=== PATIENT | female | born 1940 | race Caucasian/White ===

== ENCOUNTER 2017-04-25 20:26 | Inpatient (IN) | payer MEDICARE, OTHER ==
[~2017-04-25] VITALS: Ht 144.8 cm; Wt 93.0 kg
[~2017-04-25 20:26] MED LIST: ACETAMINOPHEN-1 EAC1; ALPRAZOLAM 0.50.5 M1; AMITRIPTYLINE; FLEXERIL PO; LISINOPRIL20 MG; NEXIUM40 MG PO; NORCO 5-325 TA1 EACH PO; PRAVACHOL40 MG PO
[2017-04-25 20:30] VITALS: BP 133/44
[2017-04-25] MEDS ORDERED: CYCLOBENZAPRINE5 MG PO (21:17)
[2017-04-25] MEDS ORDERED: XANAX 0.25 MG0.25 MG PO (21:17)
[2017-04-25] MEDS ORDERED: FARXIGA10 MG PO (21:18)
[2017-04-25] MEDS ORDERED: ELIQUIS5 MG PO (21:18)
[2017-04-25] MEDS ORDERED: FLONASE 0.05%50 MCG NASAL (21:18)
[2017-04-25] MEDS ORDERED: SYNTHROID50 MCG PO (21:18)
[2017-04-25] MEDS ORDERED: REMERON 30 MG T30 M1 PO (21:19)
[2017-04-25] MEDS ORDERED: COZAAR 25 MG TA25 M1 PO (21:19)
[2017-04-25] MEDS ORDERED: TOPROL XL50 MG PO (21:19)
[2017-04-25] MEDS ORDERED: DEMADEX20 MG PO (21:20)
[2017-04-25] MEDS ORDERED: POTASSIUM20 PO (21:20)
[2017-04-25] MEDS ORDERED: TRAZODONE HCL50 MG PO (21:21)
[2017-04-25] MEDS ORDERED: TRAMADOL 50 MG50 MG PO (21:21)
[2017-04-25] MEDS ORDERED: EFFEXOR XR150 MG PO (21:21)
[2017-04-25 21:25] LABS: HEMATOCRIT 33.3 % (37.0-47.0); HEMOGLOBIN 10.4 gm/dL (12.0-15.0); MCH 25.7 pg (26.0-34.0); MCHC 31.1 g/dL (28.0-37.0); MCV 82.6 fL (80.0-100.0); MPV 9.9 fl. (7.2-11.1); NUCLEATED RBCS 0 /100WBC; PLATELET COUNT* 204 thou/uL (150-400); RBC 4.03 mil/uL (4.20-5.00); RDW-CV 19.7 % (10.5-14.5); WBC 9.3 thou/uL (4.0-11.0)
[2017-04-25 21:32] LABS: ANION GAP 8 mmol/L (7-16); BUN 11 mg/dL (7-18); CALCIUM 7.6 mg/dL (8.5-10.1); CHLORIDE 99 mmol/L (98-107); CO2 29 mmol/L (21-32); CREATININE 1.7 mg/dL (0.6-1.3); GLUCOSE 177 mg/dL (70-99); SODIUM 136 mmol/L (136-145)
[2017-04-25 21:42] LABS: ALBUMIN 2.9 g/dL (3.4-5.0); ALKALINE PHOSPHATASE 131 U/L (46-116); LIPASE 45 U/L (73-393); NT-PRO BRAIN NAT PEPTIDE 1078 pg/mL (<300); SGOT 25 U/L (15-37); SGPT 16 U/L (30-65); TOTAL BILIRUBIN 0.2 mg/dL (<0.1-1.0); TOTAL PROTEIN 6.9 g/dL (6.4-8.2); TROPONIN-I LEVEL <0.06 ng/mL (<0.06)
[2017-04-25 21:43] LABS: POTASSIUM 2.7 mmol/L (3.5-5.1)
[2017-04-25 22:02] LABS: ABSOLUTE LYMPHOCYTES 1.9 thou/uL (0.8-5.3); ABSOLUTE MONOCYTES 0.3 thou/uL (0.0-1.2); ABSOLUTE NEUTROPHILS 7.2 thou/uL (1.6-8.1)
[2017-04-25 22:03] LABS: ANISOCYTOSIS 1+; HYPOCHROMASIA Occasional; PLATELET ESTIMATE ADEQUATE
[2017-04-25 22:15] LABS: INFLUENZA A ANTIGEN None Detected (None Detect); INFLUENZA B ANTIGEN None Detected (None Detect)
[2017-04-25 23:11] VITALS: BP 165/87
[2017-04-26 02:58] LABS: URINE BILIRUBIN NEGATIVE (Negative); URINE BLOOD NEGATIVE (Negative); URINE CLARITY CLEAR; URINE COLOR YELLOW; URINE GLUCOSE-RANDOM NEGATIVE (Negative); URINE KETONES NEGATIVE (Negative); URINE LEUKOCYTES-REFLEX NEGATIVE (Negative); URINE NITRITE-REFLEX NEGATIVE (Negative); URINE PROTEIN NEGATIVE (Negative); URINE SPECIFIC GRAVITY 1.025 (1.005-1.030); URINE UROBILINOGEN 0.2 E.U./dl (0.2-1.0)
[2017-04-26 04:00] VITALS: BP 122/54
[2017-04-26 08:00] VITALS: BP 112/81
[2017-04-26 11:00] VITALS: BP 153/62
--- NOTE | 2017-04-26 13:23 | EKG ---
[place] [address] ELECTROCARDIOGRAM REPORT Name: RENEE ELY Room: [address] ADM IN M.R.#: [id number] Admission: 04/25/17 Attend Phys: Vivek Godinez MD Discharge: Date of : 40 Report #: [id number] THIS REPORT FOR: //name// [facility] ED Test Date: 2017-04-25 Test Time: 21:14:57 Pat Name: RENEE ELY Department: Room: [facility] Gender: F Supervisor Coating: : 1940 Requested By: Daniel Hung Order Number: [id number] MD: Bonifacio Jefferson Measurements Intervals [place] Rate: 90 P: NC: 191 QRS: 99 QRSD: 149 T: 258 QT: 359 QTc: 440 Interpretive Statements Atrial-sensed ventricular-paced complexes Premature ventricular complex No further analysis attempted due to paced rhythm Compared to ECG 07/05/2011 14:51:17 Sinus tachycardia no longer present Electronically Signed On 04-26-2017 13:22:55 COIN WRAPPING MACHINE OPERATOR by Bonifacio Jefferson [email or web address] <ELECTRONICALLY SIGNED> By: Bonifacio Jefferson MD, FACC 04/26/17 1322 13 13 Bonifacio Jefferson MD, FAC /EPI
[2017-04-26 16:00] VITALS: BP 160/80
[2017-04-26 16:59] LABS: BE -4.6 mmol/L (-2 to +3); HCO3 20.3 mmol/L (22.0-26.0); PCO2 36.9 mmHg (35.0-45.0); PO2 119.6 mmHg (75.0-100.0); pH 7.359 (7.340-7.450)
[2017-04-26 20:00] VITALS: BP 169/76
[2017-04-27] VITALS: BP 160/82
[2017-04-27 04:16] VITALS: BP 149/64
[2017-04-27 05:53] LABS: ABSOLUTE LYMPHOCYTES 0.7 thou/uL (0.8-5.3); ABSOLUTE MONOCYTES 0.3 thou/uL (0.0-1.2); ABSOLUTE NEUTROPHILS 9.1 thou/uL (1.6-8.1); HEMATOCRIT 26.2 % (37.0-47.0); LYMPHOCYTES 6.9 %; MCH 25.9 pg (26.0-34.0); MCHC 31.4 g/dL (28.0-37.0); MCV 82.5 fL (80.0-100.0); MONOCYTES 2.7 %; MPV 10.1 fl. (7.2-11.1); NUCLEATED RBCS 0 /100WBC; PLATELET COUNT* 211 thou/uL (150-400); POLYS 90.4 %; RBC 3.18 mil/uL (4.20-5.00)
[2017-04-27 06:07] LABS: CALCIUM 7.9 mg/dL (8.5-10.1); CREATININE 1.2 mg/dL (0.6-1.3); POTASSIUM 4.3 mmol/L (3.5-5.1)
[2017-04-27 06:25] LABS: HEMOGLOBIN 8.2 gm/dL (12.0-15.0)
[2017-04-27 08:01] VITALS: BP 148/55
[2017-04-27 12:33] VITALS: BP 176/84
[2017-04-27 16:45] VITALS: BP 266/86
[2017-04-27 20:00] VITALS: BP 112/78
[2017-04-28] VITALS: BP 136/53
[2017-04-28 04:00] VITALS: BP 133/39
[2017-04-28 08:00] VITALS: BP 132/55
[2017-04-28 12:34] LABS: ALBUMIN 2.7 g/dL (3.4-5.0); CALCIUM 8.6 mg/dL (8.5-10.1); CREATININE 1.3 mg/dL (0.6-1.3); POTASSIUM 4.7 mmol/L (3.5-5.1); TOTAL BILIRUBIN 0.2 mg/dL (<0.1-1.0); TOTAL PROTEIN 6.1 g/dL (6.4-8.2)
[2017-04-28 15:33] VITALS: BP 146/64
[2017-04-28 20:12] VITALS: BP 154/69
[2017-04-29] VITALS: BP 139/57
[2017-04-29 04:00] VITALS: BP 145/56
[2017-04-29 05:29] LABS: HEMATOCRIT 26.2 % (37.0-47.0); HEMOGLOBIN 8.2 gm/dL (12.0-15.0); MCH 25.6 pg (26.0-34.0); MCHC 31.4 g/dL (28.0-37.0); MCV 81.7 fL (80.0-100.0); MPV 10.2 fl. (7.2-11.1); NUCLEATED RBCS 0 /100WBC; PLATELET COUNT* 219 thou/uL (150-400); RDW-CV 19.7 % (10.5-14.5); WBC 13.1 thou/uL (4.0-11.0)
[2017-04-29 05:54] LABS: ALBUMIN 2.6 g/dL (3.4-5.0); CALCIUM 8.4 mg/dL (8.5-10.1); CREATININE 1.4 mg/dL (0.6-1.3); POTASSIUM 4.6 mmol/L (3.5-5.1); TOTAL BILIRUBIN 0.2 mg/dL (<0.1-1.0); TOTAL PROTEIN 5.7 g/dL (6.4-8.2)
[2017-04-29 06:01] LABS: ABSOLUTE LYMPHOCYTES 1.4 thou/uL (0.8-5.3); ABSOLUTE MONOCYTES 0.1 thou/uL (0.0-1.2); ABSOLUTE NEUTROPHILS 11.5 thou/uL (1.6-8.1); ANISOCYTOSIS 1+; HYPOCHROMASIA 1+; PLATELET ESTIMATE ADEQUATE; POIKILOCYTOSIS 1+
[2017-04-29 06:05] LABS: PREALBUMIN 29.4 mg/dL (18.0-35.7)
[2017-04-29 08:00] VITALS: BP 167/76
[2017-04-29 16:00] VITALS: BP 216/86
[2017-04-29 20:00] VITALS: BP 140/65
[2017-04-30 08:55] VITALS: BP 180/84
[2017-04-30 14:01] VITALS: BP 180/84
[2017-04-30] MEDS ORDERED: LEVAQUIN 500 M500 M2 PO (14:09)
[2017-04-30] MEDS ORDERED: SINGULAIR 10 MG10 M1 PO (14:10)
[2017-04-30] MEDS ORDERED: PREDNISONE 10 M10 MG PO (14:13)
[2017-04-30] MEDS ORDERED: VENTOLIN HFA 1818 GM INH (14:14)
[2017-04-30] MEDS ORDERED: IRON325 PO (14:15)
[2017-04-30] MEDS ORDERED: FOLIC ACID1 MG PO (14:16)
[2017-04-30] MEDS ORDERED: VITAMIN B-12500 MCG PO (14:17)
[2017-04-30 14:26] VITALS: BP 180/84
--- NOTE | 2017-05-15 14:50 | CON ---
[address] [address] CONSULTATION Name: RENEE ELY Room: [address] IN M.R.#: [id number] Admission: 04/25/17 Attend Phys: Vivek Godinez MD Discharge: 04/30/17 Date of : 40 Report #: [id number] THIS REPORT FOR: //name// CC: Vivek Godinez [facility] DATE OF SERVICE: 04/28/2017 ADDENDUM: The patient presented to hospital with symptoms of wheezing, flu-like symptoms, cough and congestion. It has been going on for the past 3 weeks. She was found to be anemic and dropped her hemoglobin from 10.4-8.2. Meanwhile, she was found to have iron deficiency, folic and B12 deficiency. The patient reports that she has had upper and lower endoscopy 6 months ago in [facility]. Her past surgical history is hiatal hernia repair and she suffers from constipation. We will go ahead and replace her iron, B12 and folic acid. We will consider abdominal CT and make further recommendation once we review her records. <ELECTRONICALLY SIGNED> By: Carin Benitez MD 05/15/17 1450 1427 2155Carin Benitez, MD /nt
--- NOTE | 2017-05-15 14:50 | CON ---
[facility] [address] [place] [address] CONSULTATION Name: RENEE ELY Room: [address] IN M.R.#: [id number] Admission: 04/25/17 Attend Phys: Vivek Godinez MD Discharge: 04/30/17 Date of : 40 Report #: [id number] THIS REPORT FOR: //name// CC: Vivek Santos MD DICTATED BY: Love Allen [facility] DATE OF SERVICE: 04/28/2017 Please note at the time of this dictation, the patient was seen and physically examined by myself. REASON FOR CONSULTATION: Anemia. HISTORY OF PRESENT ILLNESS: This 76-year-old female who presented to the Emergency Room with having flu-like symptoms, which she states have been going on for 3 weeks and she was having some more difficulty with coughing, minimal phlegm and just seemed to be getting worse, prompting her to come in for further evaluation. The patient states she has had previous EGD about 6 months ago in which she was dilated in her esophagus at [facility] with Dr. Spears she thinks and a colonoscopy, she is unsure of the date, but that was essentially normal. She states that her bowels normally move about every 3-4 days and she is feeling a little constipated at the present time. She denies any overt bleeding either upper or lower GI tract. She states in the past she has been told that she had a history of B12 deficiency, but she has not taken any shots in quite some time nor taken an iron supplement. ALLERGIES: PENICILLIN. MEDICATIONS: From home include Pravachol, Nexium, Xanax, Flexeril, Farxiga, Eliquis, Flonase, Synthroid, Cozaar, Toprol, Remeron, potassium, Demadex, Ultram, Desyrel and . PAST MEDICAL HISTORY: Hypertension, anemia, asthma. She wears CPAP at night. PAST SURGICAL HISTORY: Bilateral knee replacement and hiatal hernia repair. FAMILY HISTORY: Noncontributory. SOCIAL HISTORY: She denies any alcohol, tobacco or illegal drug use. REVIEW OF SYSTEMS: Twelve-point review of systems is essentially negative except what [place] [address] CONSULTATION Name: RENEE ELY Room: [address]#: [id number] Admission: 04/25/17 Attend Phys: Vivek Godinez MD Discharge: 04/30/17 Date of : 40 Report #: [id number] PHYSICAL EXAMINATION: VITAL SIGNS: Temperature 36.8, pulse 91, respirations 20, blood pressure 132/55. HEART: Regular rate and rhythm. LUNGS: Clear. ABDOMEN: Soft, positive bowel sounds in all 4 quadrants with no masses or tenderness noted. LABORATORY DATA: Hemoglobin on admission 10.4, down to 8.2, hematocrit 26.2, white count is 10, platelets is 211. Sodium 140, potassium 4.3, chloride 105, CO2 26, BUN is 14, creatinine is 1.2, GFR is 44 and glucose is 197. IMPRESSION: 1. Acute on chronic anemia. 2. Constipation. 3. Acute bronchitis. PLAN: 1. We will obtain records from [facility] and from [facility] for our review. 2. Iron supplementation. 3. Dulcolax tablets. 4. Further recommendations to be made once Dr. Benitez sees the patient later today. Thank you for allowing us to participate in this patient's care. Please do not hesitate to call with any questions in regard to this consult. <ELECTRONICALLY SIGNED> By: Carin Benitez MD 05/15/17 1450 1211 01Carin Benitez MD /nt
== END 2017-04-30 16:10 | disposition home or self-care (01) | DRG 177 ==
LOC: M.ERS 20:26 → M.TBA-ER 21:53 → M.2W 21:53 → M.3W 04-29 14:20
PROVIDERS: Emergency Medicine Emergency Medical Services; ADMIT Internal Medicine
DX: J15.6 Pneumonia due to other Gram-negative bacteria (principal); J96.00 Acute respiratory failure, unspecified whether with hypoxia or hypercapnia; N17.9 Acute kidney failure, unspecified; E87.2 Acidosis; J45.901 Unspecified asthma with (acute) exacerbation; Z68.41 Body mass index [BMI] 40.0-44.9, adult; R65.10 Systemic inflammatory response syndrome (SIRS) of non-infectious origin without acute organ dysfunction; Z96.653 Presence of artificial knee joint, bilateral; I10 Essential (primary) hypertension; K59.00 Constipation, unspecified; J20.9 Acute bronchitis, unspecified; D51.9 Vitamin B12 deficiency anemia, unspecified; D50.9 Iron deficiency anemia, unspecified; D52.9 Folate deficiency anemia, unspecified; G47.33 Obstructive sleep apnea (adult) (pediatric); E87.6 Hypokalemia; E66.01 Morbid (severe) obesity due to excess calories; Z95.0 Presence of cardiac pacemaker; Z90.710 Acquired absence of both cervix and uterus; Z99.81 Dependence on supplemental oxygen; Z79.899 Other long term (current) drug therapy; Z88.0 Allergy status to penicillin

== ENCOUNTER 2017-08-24 15:13 | Inpatient (IN) | payer OTHER ==
[~2017-08-24] VITALS: Ht 142.2 cm; Wt 80.3 kg
[~2017-08-24 15:13] MED LIST changes: +COZAAR 25 MG TA25 M1 PO; +CYCLOBENZAPRINE5 MG PO; +DEMADEX20 MG PO; +EFFEXOR XR150 MG PO; +ELIQUIS5 MG PO; +FARXIGA10 MG PO; +FLONASE 0.05%50 MCG NASAL; +FOLIC ACID1 MG PO; +IRON325 PO; +LEVAQUIN 500 M500 M2 PO; +POTASSIUM20 PO; +PREDNISONE 10 M10 MG PO; +REMERON 30 MG T30 M1 PO; +SINGULAIR 10 MG10 M1 PO; +SYNTHROID50 MCG PO; +TOPROL XL50 MG PO; +TRAMADOL 50 MG50 MG PO; +TRAZODONE HCL50 MG PO; +VENTOLIN HFA 1818 GM INH; +VITAMIN B-12500 MCG PO; +XANAX 0.25 MG0.25 MG PO
[2017-08-24 15:32] VITALS: BP 137/42
[2017-08-24 16:07] LABS: ABSOLUTE BASOPHILS 0.1 thou/uL (0.0-0.2); ABSOLUTE EOSINOPHILS 0.1 thou/uL (0.0-0.7); ABSOLUTE LYMPHOCYTES 1.7 thou/uL (0.8-5.3); ABSOLUTE MONOCYTES 0.9 thou/uL (0.0-1.2); ABSOLUTE NEUTROPHILS 10.2 thou/uL (1.6-8.1); BASOPHILS 0.6 %; EOSINOPHILS 1.1 %; HEMATOCRIT 37.5 % (37.0-47.0); HEMOGLOBIN 12.1 gm/dL (12.0-15.0); MCH 29.5 pg (26.0-34.0); MCHC 32.3 g/dL (28.0-37.0); MCV 91.2 fL (80.0-100.0); MONOCYTES 6.9 %; MPV 10.1 fl. (7.2-11.1); NUCLEATED RBCS 0 /100WBC; PLATELET COUNT* 241 thou/uL (150-400); POLYS 78.4 %; RBC 4.11 mil/uL (4.20-5.00)
[2017-08-24 16:15] LABS: CALCIUM 7.9 mg/dL (8.5-10.1); CREATININE 2.1 mg/dL (0.6-1.3)
[2017-08-24 16:22] LABS: ALBUMIN 2.7 g/dL (3.4-5.0); TOTAL BILIRUBIN 0.4 mg/dL (<0.1-1.0); TOTAL PROTEIN 6.3 g/dL (6.4-8.2)
[2017-08-24 16:29] LABS: POTASSIUM 4.4 mmol/L (3.5-5.1)
[2017-08-24 18:24] VITALS: BP 163/75
[2017-08-24 18:30] VITALS: BP 174/57
--- NOTE | 2017-08-24 19:44 | NUR ---
PATIENT ARRIVED FROM ER AT 1830. PATIENT SETTLED TO ROOM. HISTORY, ASSESSMENT AND VITALS COMPLETED AND DOCUMENTED. PATIENT HAS EPIGASTRIC PAIN AND DIARRHEA. PATIENT ON CLEAR LIQUIDS, TOLERATING WATER. PATIENT IS UP STANDBY ASSIST. PATIENT HAS BRUISING TO LEGS, ARMS AND TORSO. PATIENT DENIES ANY NEEDS AT THIS TIME. CALL LIGHT TEACHING PROVIDED AND PLACED WITHIN REACH. WILL CONTINUE TO MONITOR.
[2017-08-24 20:30] VITALS: BP 161/69
[2017-08-25 03:42] LABS: ABSOLUTE EOSINOPHILS 0.1 thou/uL (0.0-0.7); ABSOLUTE LYMPHOCYTES 1.3 thou/uL (0.8-5.3); ABSOLUTE MONOCYTES 0.7 thou/uL (0.0-1.2); ABSOLUTE NEUTROPHILS 6.2 thou/uL (1.6-8.1); BASOPHILS 0.6 %; EOSINOPHILS 1.4 %; HEMATOCRIT 31.7 % (37.0-47.0); HEMOGLOBIN 10.2 gm/dL (12.0-15.0); MCH 29.9 pg (26.0-34.0); MCHC 32.3 g/dL (28.0-37.0); MCV 92.7 fL (80.0-100.0); MPV 10.6 fl. (7.2-11.1); NUCLEATED RBCS 0 /100WBC; PLATELET COUNT* 186 thou/uL (150-400); RBC 3.42 mil/uL (4.20-5.00); RDW-CV 17.1 % (10.5-14.5); WBC 8.3 thou/uL (4.0-11.0)
[2017-08-25 03:47] LABS: CALCIUM 6.6 mg/dL (8.5-10.1); CREATININE 1.6 mg/dL (0.6-1.3); POTASSIUM 3.8 mmol/L (3.5-5.1)
--- NOTE | 2017-08-25 06:04 | NUR ---
PT SLEPT MOST OF SHIFT. ASSESSMENT DOCUMENTED. MEDS GIVEN PER E-MAR. IV PATENT, FLUIDS INFUSING. NO REPORTS OF PAIN OR NAUSEA THIS SHIFT. PT HAD ONE EPISODE OF DIARRHEA. WILL CONTINUE WITH PLAN OF CARE.
[2017-08-25 08:50] VITALS: BP 138/43
--- NOTE | 2017-08-25 10:52 | NUR ---
SW met with pt to complete initial assessment, introduce self, and SW role. Pt sleeping but awoke easily to greeting and was alert and oriented, pleasant. Pt lives at home with her son and grandsons. Pt has oxygen provided through [facility]. Pt has hx of HH in the past but declined HH services upon last dc from the hospital. Pt did not have any questions or anticipate any dc needs at this time. SW to continue to follow to assist with safe dc planning.
[2017-08-25 16:00] VITALS: BP 144/68
--- NOTE | 2017-08-25 17:25 | NUR ---
PATIENT HAS BEEN ALERT AND ORIENTED TODAY, VERY PLEASANT. UP WITH STAND BY TO THE RESTROOM. VITAL SIGNS STABLE ON 2 LITERS OF OXYGEN THROUGH NASAL CANNULA. HAS HAD SEVERAL BOWEL MOVMENTS TODAY. CLEAR LIQUID DIET AND IS TOLERATING WELL. CALL LIGHT IS IN REACH, WILL CONTINUE TO MONITOR.
--- NOTE | 2017-08-25 18:41 | EKG ---
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: [place] : 1940 Requested By: No Hankins Order Number: [id number] MD: Bradley Farfan Measurements Intervals [place] Rate: 88 P: 99 [place]: 40 QRS: 92 QRSD: 110 T: 245 QT: 386 QTc: 467 Interpretive Statements Atrial-sensed ventricular-paced rhythm No further analysis attempted due to paced rhythm Baseline wander in lead(s) V1 Compared to ECG 04/25/2017 21:14:57 Ventricular premature complex(es) no longer present Electronically Signed On 08-25-2017 18:41:48 CDT by Bradley Farfan [email or web address] <ELECTRONICALLY SIGNED> By: Bradley Farfan MD, [facility] 08/25/17 1841 1556 1556 Bradley Farfan MD, [facility] /EPI
[2017-08-25 19:37] LABS: BE -2.4 mmol/L (-2 to +3); HCO3 23.1 mmol/L (22.0-26.0); PCO2 42.5 mmHg (35.0-45.0); PO2 96.8 mmHg (75.0-100.0); pH 7.353 (7.340-7.450)
[2017-08-25 21:00] VITALS: BP 177/60
--- NOTE | 2017-08-26 05:52 | NUR ---
PT SLEPT MOST OF SHIFT. ASSESSMENT DOCUMENTED. MEDS GIVEN PER E-MAR. NO REPORTS OF PAIN OR NAUSEA. NO IV ACCESS THIS SHIFT. WILL INFORM ONCOMING SHIFT THAT PATIENT NEEDS IV ACCESS VIA ULTRASOUND TODAY. WILL CONTINUE WITH PLAN OF CARE.
[2017-08-26 07:35] VITALS: BP 164/44
[2017-08-26 11:10] LABS: CALCIUM 6.7 mg/dL (8.5-10.1); CREATININE 1.2 mg/dL (0.6-1.3); POTASSIUM 4.6 mmol/L (3.5-5.1)
[2017-08-26 11:22] LABS: URINE BILIRUBIN NEGATIVE (Negative); URINE BLOOD NEGATIVE (Negative); URINE CLARITY CLEAR; URINE COLOR YELLOW; URINE GLUCOSE-RANDOM NEGATIVE (Negative); URINE KETONES NEGATIVE (Negative); URINE LEUKOCYTES NEGATIVE (Negative); URINE NITRITE NEGATIVE (Negative); URINE PROTEIN NEGATIVE (Negative); URINE SPECIFIC GRAVITY <= 1.005 (1.005-1.030); URINE UROBILINOGEN 0.2 E.U./dl (0.2-1.0)
[2017-08-26 16:00] VITALS: BP 135/78
--- NOTE | 2017-08-26 16:18 | CON ---
[facility] [address] [place] [address] CONSULTATION Name: RENEE ELY Room: [address] IN M.R.#: [id number] Admission: 08/24/17 Attend Phys: Vivek Godinez MD Discharge: Date of : 40 Report #: [id number] THIS REPORT FOR: //name// CC: Vivek Santos DICTATED BY: Love Allen [facility] DATE OF SERVICE: 08/25/2017 PRIMARY CARE PHYSICIAN: Dr. Delia Santos. Please note at the time of this dictation, the patient was seen and physically examined by myself. REASON FOR CONSULTATION: Diarrhea x 1 week. HISTORY OF PRESENT ILLNESS: This is a pleasant 76-year-old female who was seen by us in April for her anemia. She had recently had EGD about 6 months prior to that for her dysphagia and was dilated and she states her colon in the past was normal; however, we never got records from [facility] or [facility] regarding that. We will attempt to get those again today, so we can further evaluate. The patient states since she was discharged in April, she is having increasing symptoms of her dysphagia along with worsening of her GERD as well causing some episodes of nausea and vomiting. She also was having some abdominal cramping, she states, which started over a week ago and increased stooling. She has had up to 10+ times a day. She denies any bright red blood or any melena noted at this time. The patient states her normal bowel frequency is usually a couple of times a day, soft, a little loose. These now are extremely loose. She denies any antibiotic use over the last several months. ALLERGIES: PENICILLIN. HOME MEDICATIONS: Include Xanax, Eliquis, Flonase, Synthroid, Cozaar, Toprol, Remeron, K-Dur, Demadex, Desyrel, Effexor, Pravachol, Nexium, Flexeril, Farxiga, Ultram, Singulair, Ventolin, iron, folic acid and B12. PAST MEDICAL HISTORY: Hypertension, anemia, mild asthma, diabetic, history of heart stents. PAST SURGICAL HISTORY: History of defibrillator pacemaker, hiatal hernia repair, hysterectomy, bilateral total knee, history of stents. FAMILY HISTORY: [place] [address] CONSULTATION Name: JHOANARENEE Room: [address] IN [facility]#: [id number] Admission: 08/24/17 Attend Phys: Vivek Godinez MD Discharge: Date of : 40 Report #: [id number] SOCIAL HISTORY: Denies any alcohol, tobacco or illegal drug use. REVIEW OF SYSTEMS: Twelve-point review of systems is essentially negative except what is mentioned in the HPI. PHYSICAL EXAMINATION: VITAL SIGNS: Temperature 36.7, pulse 81, respirations 20, blood pressure 138/43. HEART: Regular rate and rhythm. LUNGS: Clear. ABDOMEN: Soft, positive bowel sounds in all 4 quadrants with some mild tenderness bilaterally. LABORATORY DATA: Hemoglobin is 10.2, hematocrit 31.7, white count came in at 13, she is down to 8.3, platelets 186. Sodium 139, potassium 3.8, chloride 106, CO2 27, BUN is 8, creatinine 1.6. GFR is 31 and glucose is 92. Total bilirubin 0.4, alkaline phosphatase 132, ALT 21, AST 30, lipase is 43, iron on last admission was 20 and ferritin was 19. She has been on iron supplement it appears since that time. CT of the abdomen and pelvis shows post-cholecystectomy and diverticulitis with fluid filled in the colon, otherwise negative. IMPRESSION: 1. Diarrhea -- 10+ stools daily for a week and worsening. 2. Dysphagia. 3. Gastroesophageal reflux disease, worsening. 4. B12 deficiency. 5. Chronic kidney disease. 6. Anticoagulant therapy, Eliquis secondary to history of stents, last dose Friday. PLAN: 1. Obtain her records from [facility] and [facility] regarding her EGD and colonoscopy with path. 2. EGD tomorrow for sure if C. diff comes back negative, we will plan on colon and a prep later. 3. Continue her clear liquid diet. 4. Further await C. diff results. 5. Further recommendations to be made once Dr. Benitez sees the patient. Thank you for allowing us to participate in this patient's care. Please do not hesitate to call with any questions in regard to this consult. <ELECTRONICALLY SIGNED> By: Carin Benitez MD 08/26/17 1618 1133 1427Carin Benitez MD /nt
--- NOTE | 2017-08-26 16:18 | CON ---
[address] [address] CONSULTATION Name: RENEE ELY Room: [address] IN M.R.#: [id number] Admission: 08/24/17 Attend Phys: Vivek Godinez MD Discharge: Date of : 40 Report #: [id number] THIS REPORT FOR: //name// CC: Vivek Godinez Delia [facility] DATE OF SERVICE: 08/25/2017 ADDENDUM I have personally seen and examined the patient and reviewed labs and imaging. The patient with history of upper and lower endoscopy several years ago, which she does not know what the results were. She has been complaining of diarrhea for the past week. She also has some abdominal pain, which is mainly in the lower left. She has been complaining of GERD and dysphagia, which has recently worsening. She is on Eliquis for history of stenting. We will consider performing upper endoscopy tomorrow as we obtain her records from her previous endoscopies. If her diarrhea is noninfectious, we may consider performing a colonoscopy versus flex sigmoidoscopy. <ELECTRONICALLY SIGNED> By: Carin Benitez MD 08/26/17 1618 1418 1908Carin Benitez MD /nt
--- NOTE | 2017-08-26 19:57 | NUR ---
ASSUMED CARE OF PATIENT AT 1500. REPORT RECEIVED FROM HUSAM. PATIENT RESTING IN BED. PATIENT DENIES ANY PAIN. PATIENT IS UP AD LAYA IN ROOM TO BATHROOM. PATIENT STARTED ON BOWEL PREP THIS EVENING. COLONOSCOPY AND EGD SCHEDULED FROM TOMORROW. PATIENT IS ON CLEAR LIQUIDS, TOLERATING WELL. NPO AFTER MIDNIGHT. PATIENT DENIES ANY NEEDS AT THIS TIME. CALL LIGHT WITHIN REACH. WILL CONTINUE TO MONITOR.
--- NOTE | 2017-08-26 23:26 | NUR ---
DR. ASHLEY NOTIFIED OF PATIENTS IV BEING INFILTERATED AND NURSING STAFF IS UNABLE TO SUCCESSFULLY INSERT AN IV AT THIS TIME. PATIENT IS A DIFFICULT STICK AND ATTEMPT HAS BEEN MADE. NEW ORDER GIVEN TO START METRONIDAZOLE PO AT THIS TIME. WILL CONTINUE TO MONITOR.
[2017-08-27 04:07] LABS: ABSOLUTE EOSINOPHILS 0.1 thou/uL (0.0-0.7); ABSOLUTE LYMPHOCYTES 1.3 thou/uL (0.8-5.3); ABSOLUTE MONOCYTES 0.9 thou/uL (0.0-1.2); ABSOLUTE NEUTROPHILS 7.3 thou/uL (1.6-8.1); BASOPHILS 0.5 %; EOSINOPHILS 1.2 %; HEMATOCRIT 34.9 % (37.0-47.0); HEMOGLOBIN 11.2 gm/dL (12.0-15.0); LYMPHOCYTES 13.3 %; MCH 29.6 pg (26.0-34.0); MCHC 32.1 g/dL (28.0-37.0); MCV 92.4 fL (80.0-100.0); MONOCYTES 9.4 %; MPV 10.8 fl. (7.2-11.1); NUCLEATED RBCS 0 /100WBC; PLATELET COUNT* 200 thou/uL (150-400); POLYS 75.6 %; RBC 3.77 mil/uL (4.20-5.00); RDW-CV 16.9 % (10.5-14.5); WBC 9.6 thou/uL (4.0-11.0)
[2017-08-27 04:15] LABS: ALBUMIN 2.5 g/dL (3.4-5.0); CALCIUM 6.8 mg/dL (8.5-10.1); CREATININE 1.2 mg/dL (0.6-1.3); TOTAL BILIRUBIN 0.3 mg/dL (<0.1-1.0); TOTAL PROTEIN 5.5 g/dL (6.4-8.2)
[2017-08-27 04:16] LABS: POTASSIUM 3.3 mmol/L (3.5-5.1)
[2017-08-27 08:00] VITALS: BP 132/61
--- NOTE | 2017-08-27 08:20 | NUR ---
PATIENT SLEPT MOST OF THE NIGHT. ENCOURAGED TO DRINK BOWEL PREP, BUT PATIENT NOT WANTING TO DRINK MUCH. PATIENT TO BE NPO AT 0700 THIS AM D/T SCHEDULED PROCEDURES TODAY. CONSENT SIGNED AND ON CHART. VSS ON RA. PO ABT'T GIVEN. MEDICATIONS GIVEN AND CHARTED. ASSESSMENT CHARTED. PATIENT'S BOWEL ARE YELLOW IN COLOR WITH CHUNKS. REPORT GIVEN TO DAY NURSE AND INFORMED NURSE TO CONTACT GI THIS AM REGARDING BOWEL PREP. PATIENT INSTRUCTED TO USE CALL LIGHT WHEN NEEDING ASSISTANCE. HOURLY ROUNDS MADE. WILL CONTINUE WITH PLAN OF CARE AND NURSING TO MONITOR.
[2017-08-27 16:20] VITALS: BP 157/49
--- NOTE | 2017-08-27 16:50 | NUR ---
PATIENT A&OX4, 2L O2 VIA NC DURING NOC, ROOM AIR DURING DAY. UP AD LAYA, STAND BY STEADY GIAT. NO C/O PAIN/N/V. DIARREHA TODAY DO TO BOWEL PREP. EGD AND COLONOSCOPY DONE TODAY. PATIENT BACK TO ROOM, DIABETIC DIET, TOLERATING FOOD. NO OTHER CONCERNS AT THIS TIME. APPROPRIATE AND COOPORATIVE WITH CARE.
[2017-08-27 23:50] VITALS: BP 137/55
[2017-08-28 07:40] VITALS: BP 154/54
[2017-08-28] MEDS ORDERED: PROTONIX40 M1 PO (13:42)
--- NOTE | 2017-08-28 13:43 | NUR ---
PT'S MEDICAL CHART IS REVIEWED AND STATUS DISCUSSED W/ NSG. PT INDICATES STRONG SOCIAL SUPPORT AT HOME FROM SON AND GRANDCHILDREN. PT DEMO INDEP BED MOB, INDEP TRANSFERS, REQUESTS HAND HOLD SUPPORT FOR GAIT ON LEVELS DUE TO NOT HAVING CORRECT SHOES. PT AMB TO THERAPY GYM W/ HH SUPPORT. RESTS IN CHAIR. PT AMB UP 3 STEPS W/ ONE RAIL AND HAND HELD SUPPORT USING STEP TO PATTERN. PT DESCENDS 3 STEPS USING ONE RAIL AND HAND HELD SUPPORT DEMONSTRATING SIDE STEP PATTERN. PT AMB BACK TO ROOM W/ HAND HELD SUPPORT. PT RETURNS TO RECLINED IN BED. PT VOICES NO CONCERNS W/ DISCHARGE TO HOME. NO FURTHER ACUTE PT SERVICES ARE INDICATED.
[2017-08-28] MEDS ORDERED: BENTYL 10 MG CA10 M1 PO (13:44)
[2017-08-28 13:51] VITALS: BP 154/54
[2017-08-28 14:21] VITALS: BP 154/54
--- NOTE | 2017-08-28 14:21 | NUR ---
PATIENT HAS BEEN ALERT AND ORIENTED TODAY VERY PLEASANT, UP WITH STAND BY ASSIST TO THE RESTROOM. VITAL SIGNS STABLE ON ROOM AIR AND 2 LITERS AT TIMES. PATIENT HAS NO COMPLAINTS OF PAIN. PATIENT IS BEING DISCHARGED TO HOME. PRESCRIPTIONS GIVEN, DISCHARGE INSTRUCTIONS GIVEN AND QUESTIONS ANSWERED FOR PATIENT. LEFT VIA WHEEL CHAIR TO GO HOME.
--- NOTE | 2017-10-03 11:09 | PATH ---
[facility] [address] [place] [address] PATHOLOGY RPT PROCEDURE Name: RENEE ELY Room: [address] IN M.R.#: [id number] Admission: 08/24/17 Date of : 40 Discharge: 08/28/17 Report #: [id number] Path Case #: [id number] LCA Accession Number: [id number] . 01 Material submitted: . PART A: BIOPSY, DUODENUM PART B: BIOPSY, RANDOM COLON . 01 Clinical history: . None provided . 02 Diagnosis: A. Duodenal mucosa (biopsy): - Moderate non-specific chronic inflammation of lamina propria with mild villous blunting and fusion, average height to width ratio 2-3:1. Changes are not suggestive of sprue or sprue-like condition. . B. Colonic mucosa (random biopsies): - Mild non-specific chronic inflammation of lamina propria with lymphoid aggregate formation, negative for dysplasia, negative for active chronic colitis. (ARVIND:; 08/28/17) QRQ/08/28/2017 . 02 Electronically signed: . Wilson Mendenhall MD, Pathologist NPI- [id number] . 01 Gross description: . A. Received in formalin labeled "Renee Ely, duodenal for diarrhea," are multiple segments of duron soft tissue measuring 1.5 x 0.4 x 0.2 cm in aggregate dimensions and ranging from 0.1 to 0.4 cm in maximum dimension. The specimen is filtered and submitted entirely in cassette A1. . B. Received in formalin labeled "Renee Ely, random colon biopsies," are multiple segments of duron soft tissue measuring 2.5 x 0.6 x 0.2 cm in aggregate dimensions and ranging from 0.1 to 0.3 cm in maximum dimension. The specimen is submitted entirely in cassette B1. (TSD; 08/27/2017) TOB/TOB . 02 Pathologist provided ICD-10: K29.80, K52.9 . 02 CPT . 883893, 694687 Performed at: 01 [place] [address] PATHOLOGY RPT PROCEDURE Name: RENEE ELY Room: [address] DIS IN M.R.#: [id number] Admission: 08/24/17 Date of : 40 Discharge: 08/28/17 Report #: [id number] Path Case #: [id number] [address] [facility] [address], [place], [place] [id number] MD Dakota Perea MD Phone: [phone] Performed at: [address] [id number] MD Wilson Mendenhall MD Phone: [phone]
== END 2017-08-28 14:20 | disposition home or self-care (01) | DRG 371 ==
LOC: M.ERS 15:13 → M.3W 18:06 → M.TBA-ER 18:06 → M.3W 19:00
PROVIDERS: Internal Medicine; Physician Assistant; ADMIT Internal Medicine
DX: A04.9 Bacterial intestinal infection, unspecified (principal); R65.11 Systemic inflammatory response syndrome (SIRS) of non-infectious origin with acute organ dysfunction; N17.9 Acute kidney failure, unspecified; R13.10 Dysphagia, unspecified; K21.9 Gastro-esophageal reflux disease without esophagitis; E11.22 Type 2 diabetes mellitus with diabetic chronic kidney disease; E86.0 Dehydration; N18.3 Chronic kidney disease, stage 3 (moderate); K21.0 Gastro-esophageal reflux disease with esophagitis; K44.9 Diaphragmatic hernia without obstruction or gangrene; I12.9 Hypertensive chronic kidney disease with stage 1 through stage 4 chronic kidney disease, or unspecified chronic kidney disease; K22.2 Esophageal obstruction; K57.30 Diverticulosis of large intestine without perforation or abscess without bleeding; R12 Heartburn; K64.8 Other hemorrhoids; K64.4 Residual hemorrhoidal skin tags; K58.9 Irritable bowel syndrome, unspecified; Z90.710 Acquired absence of both cervix and uterus; Z95.0 Presence of cardiac pacemaker; Z88.0 Allergy status to penicillin; Z95.5 Presence of coronary angioplasty implant and graft; Z79.01 Long term (current) use of anticoagulants

== ENCOUNTER 2017-09-05 14:05 | Emergency (ER) | payer OTHER ==
[~2017-09-05] VITALS: Ht 144.8 cm; Wt 77.1 kg
[~2017-09-05 14:05] MED LIST changes: +BENTYL 10 MG CA10 M1 PO; +PROTONIX40 M1 PO
[2017-09-05 14:32] LABS: ABSOLUTE BASOPHILS 0.1 thou/uL (0.0-0.2); ABSOLUTE LYMPHOCYTES 1.2 thou/uL (0.8-5.3); ABSOLUTE MONOCYTES 0.7 thou/uL (0.0-1.2); ABSOLUTE NEUTROPHILS 7.6 thou/uL (1.6-8.1); BASOPHILS 1.2 %; EOSINOPHILS 0.4 %; HEMATOCRIT 37.8 % (37.0-47.0); HEMOGLOBIN 12.2 gm/dL (12.0-15.0); LYMPHOCYTES 12.1 %; MCH 29.8 pg (26.0-34.0); MCHC 32.2 g/dL (28.0-37.0); MCV 92.4 fL (80.0-100.0); MONOCYTES 7.5 %; NUCLEATED RBCS 0 /100WBC; PLATELET COUNT* 155 thou/uL (150-400); POLYS 78.8 %; RBC 4.09 mil/uL (4.20-5.00); RDW-CV 17.5 % (10.5-14.5); WBC 9.6 thou/uL (4.0-11.0)
[2017-09-05 14:43] LABS: CALCIUM 8.4 mg/dL (8.5-10.1); CREATININE 1.6 mg/dL (0.6-1.3)
[2017-09-05 14:48] LABS: ALBUMIN 2.8 g/dL (3.4-5.0); TOTAL BILIRUBIN 0.4 mg/dL (<0.1-1.0); TOTAL PROTEIN 6.2 g/dL (6.4-8.2)
[2017-09-05 16:20] LABS: URINE BILIRUBIN NEGATIVE (Negative); URINE BLOOD TRACE (Negative); URINE CLARITY CLEAR; URINE COLOR YELLOW; URINE GLUCOSE-RANDOM NEGATIVE (Negative); URINE KETONES NEGATIVE (Negative); URINE NITRITE-REFLEX NEGATIVE (Negative); URINE PROTEIN NEGATIVE (Negative); URINE SPECIFIC GRAVITY <= 1.005 (1.005-1.030); URINE UROBILINOGEN 0.2 E.U./dl (0.2-1.0)
[2017-09-05 16:22] LABS: URINE LEUKOCYTES-REFLEX 3+ (Negative)
[2017-09-05 16:26] LABS: SQUAMOUS >10 Many /LPF (0-3)
[2017-09-05 16:27] LABS: BACTERIA-REFLEX 1-9 Few /HPF (None Seen); HYALINE CASTS 0-3 Few /LPF (None Seen); MUCUS None Seen strn/LPF (None Seen); URINE WBC-REFLEX 6-15 Few /HPF (0-5)
[2017-09-05 16:28] LABS: CRYSTALS None Seen /LPF (None Seen); URINE RBC 0-2 Rare /HPF (0-2)
[2017-09-05] MEDS ORDERED: BACTRIM DS TAB1 EACH PO (16:45)
[2017-09-05] MEDS ORDERED: FLAGYL 250 MG250 MG PO (16:45)
[2017-09-05 17:09] VITALS: BP 187/118
--- NOTE | 2017-09-07 14:37 | EKG ---
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 [place] : 1940 Requested By: Delvin Balbuena Order Number: [id number] MD: Bonifacio Jefferson Measurements Intervals [place] Rate: 86 P: 29 [place]: 143 QRS: 82 QRSD: 112 T: 37 QT: 408 QTc: 488 Interpretive Statements Atrial-sensed ventricular-paced rhythm No further analysis attempted due to paced rhythm Compared to ECG 08/24/2017 15:56:48 No significant changes Electronically Signed On 09-07-2017 14:37:23 CDT by Bonifacio Jefferson [email or web address] <ELECTRONICALLY SIGNED> By: Bonifacio Jefferson MD, [facility] 09/07/17 1437 1430 1430 Bonifacio Jefferson MD, [facility] /EPI
== END 2017-09-05 17:09 | disposition home or self-care (01) ==
LOC: M.ERS 14:05
PROVIDERS: Nurse Practitioner Family
DX: R19.7 Diarrhea, unspecified (principal); N39.0 Urinary tract infection, site not specified; J45.909 Unspecified asthma, uncomplicated; I10 Essential (primary) hypertension; Z90.710 Acquired absence of both cervix and uterus; Z88.0 Allergy status to penicillin; Z95.5 Presence of coronary angioplasty implant and graft

== ENCOUNTER 2017-09-25 10:34 | Inpatient (IN) | payer OTHER ==
[~2017-09-25] VITALS: Ht 142.2 cm; Wt 74.4 kg
--- NOTE | ~2017-09-25 | PROC ---
[facility] [address] [place] [address] PROCEDURE REPORT Name: RENEE ELY Room: [address] IN .R.#: [id number] Admission: 09/25/17 Attend Phys: Maria E Hebert Discharge: Date of : 40 Report #: [id number] THIS REPORT FOR: //name// For GI report, please see the Provation report in Perceptive 7 content. By: 1039Medical Records Staff [facility] /ELMER
[~2017-09-25 10:34] MED LIST changes: +BACTRIM DS TAB1 EACH PO; +FLAGYL 250 MG250 MG PO
[2017-09-25 10:41] VITALS: BP 176/86
[2017-09-25 11:12] LABS: ABSOLUTE BASOPHILS 0.1 thou/uL (0.0-0.2); ABSOLUTE LYMPHOCYTES 0.7 thou/uL (0.8-5.3); ABSOLUTE MONOCYTES 0.5 thou/uL (0.0-1.2); ABSOLUTE NEUTROPHILS 5.8 thou/uL (1.6-8.1); EOSINOPHILS 0.2 %; HEMATOCRIT 34.4 % (37.0-47.0); HEMOGLOBIN 11.4 gm/dL (12.0-15.0); MCH 30.5 pg (26.0-34.0); MCHC 33.2 g/dL (28.0-37.0); MCV 91.7 fL (80.0-100.0); MONOCYTES 6.7 %; MPV 11.4 fl. (7.2-11.1); NUCLEATED RBCS 0 /100WBC; PLATELET COUNT* 135 thou/uL (150-400); POLYS 82.1 %; RBC 3.75 mil/uL (4.20-5.00); RDW-CV 18.3 % (10.5-14.5); WBC 7.1 thou/uL (4.0-11.0)
[2017-09-25 11:21] LABS: ANION GAP 9 mmol/L (7-16); BUN 11 mg/dL (7-18); CALCIUM 8.5 mg/dL (8.5-10.1); CHLORIDE 103 mmol/L (98-107); CO2 21 mmol/L (21-32); CREATININE 1.5 mg/dL (0.6-1.3); GLUCOSE 147 mg/dL (70-99); POTASSIUM 3.3 mmol/L (3.5-5.1); SODIUM 133 mmol/L (136-145)
[2017-09-25 11:28] LABS: ALBUMIN 2.9 g/dL (3.4-5.0); ALKALINE PHOSPHATASE 85 U/L (46-116); LIPASE 45 U/L (73-393); SGOT 30 U/L (15-37); SGPT 25 U/L (30-65); TOTAL BILIRUBIN 0.5 mg/dL (<0.1-1.0); TOTAL PROTEIN 5.7 g/dL (6.4-8.2); TROPONIN-I LEVEL <0.06 ng/mL (<0.06)
[2017-09-25] MEDS ORDERED: RANITIDINE HCL300 MG PO (11:52)
[2017-09-25] MEDS ORDERED: FLAGYL500 MG PO (11:52)
[2017-09-25] MEDS ORDERED: SPIRONOLACTONE25 M1 PO (11:52)
[2017-09-25] MEDS ORDERED: PACERONE 200 M200 M1 PO (11:53)
[2017-09-25] MEDS ORDERED: BENTYL 20 MG TA20 M1 PO (11:53)
[2017-09-25] MEDS ORDERED: ZOFRAN ODT4 MG PO (11:54)
[2017-09-25] MEDS ORDERED: ONDANSETRON HCL4 M2 PO (11:54)
[2017-09-25 12:22] LABS: URINE BLOOD NEGATIVE (Negative); URINE CLARITY CLEAR; URINE COLOR YELLOW; URINE GLUCOSE-RANDOM NEGATIVE (Negative); URINE KETONES NEGATIVE (Negative); URINE LEUKOCYTES-REFLEX TRACE (Negative); URINE NITRITE-REFLEX NEGATIVE (Negative); URINE PROTEIN 1+ (Negative); URINE SPECIFIC GRAVITY 1.025 (1.005-1.030); URINE UROBILINOGEN 0.2 E.U./dl (0.2-1.0)
[2017-09-25 12:24] LABS: ICTOTEST (BILI CONFIRMATORY) Negative (Negative); URINE BILIRUBIN 1+ (Negative)
[2017-09-25 12:29] LABS: BACTERIA-REFLEX None Seen /HPF (None Seen); CASTS None Seen /LPF (None Seen); CRYSTALS None Seen /LPF (None Seen); MUCUS None Seen strn/LPF (None Seen); SQUAMOUS 4-10 Moderate /LPF (0-3); URINE RBC 0-2 Rare /HPF (0-2); URINE WBC-REFLEX 0-5 Rare /HPF (0-5)
[2017-09-25 15:59] VITALS: BP 151/81
[2017-09-25 16:43] VITALS: BP 177/73
--- NOTE | 2017-09-25 16:43 | EKG ---
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: : 1940 Requested By: Dario Hakw Order Number: [id number] MD: Leo Elam Measurements Intervals [place] Rate: 65 P: 36 [place]: 155 QRS: 72 QRSD: 114 T: 69 QT: 425 QTc: 442 Interpretive Statements Atrial-sensed ventricular-paced rhythm No further analysis attempted due to paced rhythm Compared to ECG 09/05/2017 14:30:38 No significant changes Electronically Signed On 09-25-2017 16:43:12 CDT by Leo Elam [email or web address] <ELECTRONICALLY SIGNED> By: Leo Elam MD, [facility] 09/25/17 5276 1043 1043 Leo Elam MD, [facility] /EPI
[2017-09-25 20:00] VITALS: BP 139/67
[2017-09-26 08:20] VITALS: BP 122/76
[2017-09-26 16:07] VITALS: BP 125/73
[2017-09-26 21:00] VITALS: BP 168/64
[2017-09-27 09:00] VITALS: BP 124/61
[2017-09-27 16:11] VITALS: BP 148/66
[2017-09-27 19:30] VITALS: BP 137/59
[2017-09-28 07:45] VITALS: BP 156/69
[2017-09-28 12:30] VITALS: BP 145/90
[2017-09-28 16:09] VITALS: BP 145/81
[2017-09-28 20:10] VITALS: BP 130/55
[2017-09-28 22:00] LABS: BE -9.5 mmol/L (-2 to +3); PCO2 28.6 mmHg (35.0-45.0); PO2 87.3 mmHg (75.0-100.0); pH 7.337 (7.340-7.450)
[2017-09-28 22:35] VITALS: BP 114/65
[2017-09-28 22:50] VITALS: BP 124/64
[2017-09-28 22:50] LABS: CALCIUM 8.9 mg/dL (8.5-10.1); CREATININE 1.7 mg/dL (0.6-1.3)
[2017-09-28 22:52] LABS: POTASSIUM 6.3 mmol/L (3.5-5.1)
[2017-09-29] VITALS (8 sets, daily range): BP systolic 131–170; BP diastolic 59–83
[2017-09-29 07:07] LABS: HEMATOCRIT 33.6 % (37.0-47.0); HEMOGLOBIN 10.9 gm/dL (12.0-15.0); MCH 30.5 pg (26.0-34.0); MCHC 32.4 g/dL (28.0-37.0); MPV 11.2 fl. (7.2-11.1); RBC 3.58 mil/uL (4.20-5.00); RDW-CV 18.5 % (10.5-14.5); WBC 9.7 thou/uL (4.0-11.0)
[2017-09-29 07:36] LABS: CALCIUM 8.9 mg/dL (8.5-10.1); CREATININE 1.6 mg/dL (0.6-1.3)
[2017-09-29 07:46] LABS: POTASSIUM 5.2 mmol/L (3.5-5.1)
[2017-09-30 00:08] VITALS: BP 138/65
[2017-09-30 04:25] VITALS: BP 133/54
[2017-09-30 08:02] VITALS: BP 165/83
[2017-09-30 16:00] VITALS: BP 130/58
[2017-09-30 20:00] VITALS: BP 143/68
[2017-10-01] VITALS: BP 145/68
[2017-10-01 04:00] VITALS: BP 137/71
[2017-10-01 08:00] VITALS: BP 185/97
[2017-10-01 12:19] VITALS: BP 145/65
[2017-10-01 15:52] VITALS: BP 133/52
--- NOTE | 2017-10-01 16:41 | CON ---
[address] [address] CONSULTATION Name: RENEE ELY Room: [address] IN .R.#: [id number] Admission: 09/25/17 Attend Phys: Maria E Hebert Discharge: Date of : 40 Report #: [id number] THIS REPORT FOR: //name// CC: Delia Meléndez DATE OF SERVICE: 09/25/2017 REQUESTING PHYSICIAN: Nawaf Meléndez DO HISTORY OF PRESENT ILLNESS: This is a 77-year-old female with history of diarrhea and nausea and vomiting. The patient had undergone upper and lower endoscopy by myself back in 08/2017. At that time, there was no evidence of any blockage. The patient had a mild Schatzki ring, small hiatal hernia and normal stomach and the duodenum. The biopsies of the duodenum and the colon were obtained to rule out celiac sprue and microscopic colitis. Subsequently, the patient was placed on Protonix and dicyclomine. The patient reports that she continues to have similar symptoms. She denies hematochezia or melena. Following path reports, there is nothing in the computer. We will talk to Pathology Department tomorrow to find out about this report. The patient also takes Eliquis 1 tablet b.i.d. PAST MEDICAL HISTORY: Significant for history of hiatal hernia, asthma, cardiac stenting and chronic anticoagulation therapy, anemia, hypertension, borderline diabetes, status post defibrillation and pacemaker placement, O2 dependency with 2 liters of O2 at home, asthma. ALLERGIES: SIGNIFICANT TO PENICILLIN. MEDICATIONS: Please refer to hospital MAR. SOCIAL HISTORY: The patient denies tobacco or alcohol use. FAMILY HISTORY: Noncontributory. PHYSICAL EXAMINATION: VITAL SIGNS: Reveal blood pressure of 177/73, respiration 15, pulse 73, temperature 97.5. LUNGS: Clear. CARDIOVASCULAR: Regular. ABDOMEN: Soft, nontender, nondistended. Bowel sounds are positive. NEUROLOGIC: The patient is alert and oriented x 3. There is no focal neurologic deficit. LABORATORY DATA: Labs reveal sodium of 133, potassium 3.3, BUN is 11, [place] [address] CONSULTATION Name: JHOANARENEE D Room: [address] IN [facility]#: [id number] Admission: 09/25/17 Attend Phys: Maria E Hebert Discharge: Date of : 40 Report #: [id number] creatinine 1.5, glucose 147. WBC is 7.1, hemoglobin is 11.4, platelet is 135. IMAGING: CT of abdomen and pelvis was obtained on admission. There are no acute gastrointestinal abnormalities. There are some colonic diverticula. ASSESSMENT AND PLAN: We will consider a gastric emptying test as the patient reports persistent nausea and vomiting. In reference to diarrhea, we will check Clostridium difficile and consider Lomotil 1 tablet b.i.d. I will also talk to pathology in regards to her path report from our endoscopic evaluation in late August. <ELECTRONICALLY SIGNED> By: Carin Benitez MD 10/01/17 1641 1809 Carin Benitez MD /nt
[2017-10-01 20:00] VITALS: BP 122/43
[2017-10-02] VITALS: BP 151/73
[2017-10-02 04:00] VITALS: BP 125/79
[2017-10-02 11:43] VITALS: BP 151/68
[2017-10-02 15:26] VITALS: BP 166/59
[2017-10-02 20:00] VITALS: BP 164/81
[2017-10-03] VITALS: BP 163/66
[2017-10-03 00:10] VITALS: BP 126/69
[2017-10-03 04:00] VITALS: BP 153/53
[2017-10-03 08:00] VITALS: BP 168/77
[2017-10-03 11:50] VITALS: BP 147/66
--- NOTE | 2017-10-03 12:17 | EEG ---
[address] [address] EEG STUDY REPORT Name: JHOANARENEE D Room: [address] IN M.R.#: [id number] Admission: 09/25/17 Attend Phys: Maria E Hebert Discharge: Date of : 40 Report #: [id number] THIS REPORT FOR: //name// CC: Delia Meléndez This patient is being evaluated for confusion. EEG was done by placing the electrode by standard 10-20 system of electrode placement. Both referential and sequential montages were used for recording. Background activity in this patient's EEG is about 7 Hz and 30 microvolts. It is a symmetrical activity. The patient went to sleep that is associated with bilaterally symmetrical slowing and vertex sharp waves. Photic stimulation is unremarkable. Throughout the record, no active epileptiform activity was noticed. IMPRESSION: This is an abnormal EEG because it is disorganized and poorly formed. That is a nonspecific abnormality, which can occur with encephalopathy, effect of psychotropic medication, dementia, etc. Clinical correlation is recommended. <ELECTRONICALLY SIGNED> By: Ej Tucker MD 10/03/17 1217 1529 [id number] Tucker MD /nt
--- NOTE | 2017-10-03 12:17 | CON ---
[address] [address] CONSULTATION Name: RENEE ELY Room: [address] IN M.R.#: [id number] Admission: 09/25/17 Attend Phys: Maria E Hebert Discharge: Date of : 40 Report #: [id number] THIS REPORT FOR: //name// CC: Delia Meléndez DATE OF SERVICE: 09/30/2017 HISTORY OF PRESENT ILLNESS: This is a 77-year-old female patient who was evaluated by me for altered mental status and memory disturbances. I tried to talk to the patient and she does not provide a good history. Subsequently, I was able to talk to the patient's daughter and she provided some history. The patient is admitted with GI problems and it looks like it is going on for a few months and nutrition is not very good and she was admitted with that. As far as memory problem is concerned that it is going on for a long time. In fact, she sees a neurologist at [facility]. She usually goes to [facility] but for some reason, she was admitted here. The daughter did not know why she sees the neurologist but looks like a memory problem has been there for a long time. It has become worse with her GI problems and recently. She does not know anything, which makes it better or worse. There were moderately severe and they are severe now. They did started spontaneously without any trauma. REVIEW OF SYSTEMS: Indicate the patient has been diagnosed with sleep apnea for a long time. She refused to take CPAP and so, somebody put her on oxygen. They wanted her to take oxygen during the day and night, but she will not take it during the day. She has a history of coronary artery disease. She has cardiac stenting and she has been on anticoagulation. She has a history of hypertension. She states she has a history of diabetes. She has a defibrillator and pacemaker. She is oxygen dependent. I carried out a 14-point review of systems from the patient and subsequently from the daughter and this is the relevant 14-point review of systems, I can get. She indicates her vision and hearing is okay. She is on chronic anticoagulation. She does not have any musculoskeletal, constitutional, dermatological, hematological, psychiatric, throat, allergic symptom associated with present symptomatology. She is admitted with abdominal symptoms. She does not appear to have much urinary problem. PAST MEDICAL HISTORY: Positive for memory disturbances. Further history is not clear. FAMILY HISTORY: Negative for any early age stroke. SOCIAL HISTORY: She does not smoke or drink any alcohol. PHYSICAL EXAMINATION: NEUROLOGICAL: Indicate that she is alert. She is responsive. [place] [address] CONSULTATION Name: RENEE ELY Room: [address] IN [facility]#: [id number] Admission: 09/25/17 Attend Phys: Maria E Hebert Discharge: Date of : 40 Report #: [id number] May and she knows the hospital. She has 0 out of 3 memory at 2 minutes interval. Her speech looks intact. Cranial nerve examination 2 through 12 appeared to be showing nystagmus on both sides. She has symmetrical strength, sensation, reflexes and tone in all 4 extremities, but the reflexes are absent in the lower extremities. Her position sense is intact. She has no cerebellar sign. There is no papilledema. GENERAL: She is moderately obese individual who does not have any dysmorphic features of eyes, ears and face. HEENT: Her visions and hearing looks adequate. NECK: She has no thyroid mass. EXTREMITIES: Her pulses are difficult to feel. She has no edema, cyanosis or jaundice. CARDIAC: Examination indicates she has stent in the past. LUNGS: She does have rhonchi on both sides. She is not in marked respiratory difficulty. VITAL SIGNS: Her blood pressure is 165/83, respirations 19, pulse is 69 and temperature is 97.4. LABORATORY DATA: Her platelet count is 123. She has a potassium of 5.2. She did have a TSH and vitamin B12 recently and they were unremarkable. RADIOLOGICAL DATA: She did have a CT scan of the head, which demonstrated old changes but no acute changes. IMPRESSION AND RECOMMENDATIONS: Pretty significant cognitive difficulty. I suspect this patient has a baseline dementia. That probably became worst with nutritional deficiency and lack of oxygen to the brain for a long time because of untreated sleep apnea. We will give her some thiamine because she does appear to have some nystagmus. Workup is limited in this patient because we cannot do an MRI in this patient. I will get an echocardiogram done. Daughter thinks this deterioration is pretty profound and we will do some further workup and decide about further management on the basis of that. All of it was discussed with the patient and the patient's daughter. Their options were discussed and they want to follow this approach. More than 50 minutes of time was spent taking care of this patient today and majority of that time was spent counseling the patient and subsequently the daughter and coordinating her care. <ELECTRONICALLY SIGNED> By: Ej Tucker MD 10/03/17 1217 0847 0906Ej Tucker MD /nt
[2017-10-03] MEDS ORDERED: METAFOLBIC TAB1 EACH PO (14:32)
[2017-10-03 15:19] VITALS: BP 147/66
--- NOTE | 2017-10-09 10:08 | PATH ---
[facility] [address] [place] [address] PATHOLOGY RPT PROCEDURE Name: RENEE ELY Room: [address] IN M.R.#: [id number] Admission: 09/25/17 Date of : 40 Discharge: 10/03/17 Report #: [id number] Path Case #: [id number] LCA Accession Number: [id number] . 01 Material submitted: . GASTRITIS R/O H. PYLORI . 01 Clinical history: . R/O H. pylori . 02 Diagnosis: Gastric biopsy "gastritis rule out H. pylori": - Focal reactive foveolar hyperplasia. - There is no evidence of acute cryptitis, granulomas, adenomatous change or malignancy. - The immunoperoxidase stain for Helicobacter pylori is negative. (SHA:cindy 10/01/2017) QTP/10/01/2017 . 02 Electronically signed: . Hans Osman MD, Pathologist NPI- [id number] . 01 Gross description: . The specimen is received in formalin, labeled "Renee Carlos, gastritis, R/O H. pylori". Received are four segments of pale duron soft tissue ranging in size from 0.2 to 0.7 cm in maximum dimensions. The specimen is submitted entirely in cassette A1. (CAA; 09/30/2017) QAC/QAC . 02 Pathologist provided ICD-10: R13.10, R11.10 . 02 CPT . 887281, W12857 Performed at: [address], [place], [place] [id number] MD Dakota Perea MD Phone: [phone] Performed at: 02 [facility] [address], [place], [place] [id number] MD Huber Khan MD Phone: [phone]
== END 2017-10-03 16:28 | DRG 391 ==
LOC: M.ERS 10:34 → M.TBA-ER 13:27 → M.ORTHSURG 13:27 → M.2W 09-29 00:01
PROVIDERS: Emergency Medicine; Internal Medicine; ADMIT Internal Medicine
PROC: 0D748DZ Dilation of Esophagogastric Junction with Intraluminal Device, Via Natural or Artificial Opening Endoscopic (ICD-10-PCS; principal; 2017-09-29)
PROC: 0DB68ZX Excision of Stomach, Via Natural or Artificial Opening Endoscopic, Diagnostic (ICD-10-PCS; principal; 2017-09-29)
PROC: 0DC68ZZ Extirpation of Matter from Stomach, Via Natural or Artificial Opening Endoscopic (ICD-10-PCS; principal; 2017-09-29)
PROC: 0DJD8ZZ Inspection of Lower Intestinal Tract, Via Natural or Artificial Opening Endoscopic (ICD-10-PCS; principal; 2017-09-29)
DX: K31.89 Other diseases of stomach and duodenum (principal); G93.40 Encephalopathy, unspecified; E44.0 Moderate protein-calorie malnutrition; N18.3 Chronic kidney disease, stage 3 (moderate); I12.9 Hypertensive chronic kidney disease with stage 1 through stage 4 chronic kidney disease, or unspecified chronic kidney disease; J45.909 Unspecified asthma, uncomplicated; G47.30 Sleep apnea, unspecified; F03.90 Unspecified dementia, unspecified severity, without behavioral disturbance, psychotic disturbance, mood disturbance, and anxiety; I25.10 Atherosclerotic heart disease of native coronary artery without angina pectoris; E11.22 Type 2 diabetes mellitus with diabetic chronic kidney disease; R53.81 Other malaise; K29.70 Gastritis, unspecified, without bleeding; K22.2 Esophageal obstruction; Z96.653 Presence of artificial knee joint, bilateral; Z90.710 Acquired absence of both cervix and uterus; Z99.81 Dependence on supplemental oxygen; Z95.0 Presence of cardiac pacemaker; Z88.0 Allergy status to penicillin; Z95.5 Presence of coronary angioplasty implant and graft; Z79.4 Long term (current) use of insulin; Z79.2 Long term (current) use of antibiotics; Z79.899 Other long term (current) drug therapy; Z68.36 Body mass index [BMI] 36.0-36.9, adult; Z79.01 Long term (current) use of anticoagulants; Z80.0 Family history of malignant neoplasm of digestive organs

== ENCOUNTER 2017-10-21 18:33 | Inpatient (IN) | payer OTHER ==
[~2017-10-21] VITALS: Ht 149.9 cm; Wt 70.3 kg
[~2017-10-21 18:33] MED LIST changes: +BENTYL 20 MG TA20 M1 PO; +FLAGYL500 MG PO; +METAFOLBIC TAB1 EACH PO; +ONDANSETRON HCL4 M2 PO; +PACERONE 200 M200 M1 PO; +RANITIDINE HCL300 MG PO; +SPIRONOLACTONE25 M1 PO; +ZOFRAN ODT4 MG PO
[2017-10-21 18:37] VITALS: BP 121/48
[2017-10-21] MEDS ORDERED: VITAMIN B122500 MCG PO (18:45)
[2017-10-21] MEDS ORDERED: PEPCID20 MG PO (18:45)
[2017-10-21] MEDS ORDERED: TYLENOL325 MG PO (18:46)
[2017-10-21] MEDS ORDERED: TRAZODONE HCL50 MG PO (18:48)
[2017-10-21] MEDS ORDERED: LIPITOR10 MG PO (18:49)
[2017-10-21] MEDS ORDERED: LEVAQUIN 500 M500 M4 PO (18:50)
[2017-10-21] MEDS ORDERED: REMERON15 MG PO (18:51)
[2017-10-21] MEDS ORDERED: DEMADEX20 MG PO (18:52)
[2017-10-21] MEDS ORDERED: COZAAR 25 MG TA25 M2 PO (18:52)
[2017-10-21] MEDS ORDERED: BENTYL 10 MG CA10 M1 PO (18:54)
[2017-10-21] MEDS ORDERED: TRADJENTA5 MG (18:54)
[2017-10-21 19:02] LABS: HEMATOCRIT 27.5 % (37.0-47.0); MCH 30.6 pg (26.0-34.0); MCHC 32.7 g/dL (28.0-37.0); MCV 93.5 fL (80.0-100.0); NUCLEATED RBCS 0 /100WBC; PLATELET COUNT* 121 thou/uL (150-400); RBC 2.94 mil/uL (4.20-5.00); RDW-CV 17.6 % (10.5-14.5); WBC 12.4 thou/uL (4.0-11.0)
[2017-10-21 19:11] LABS: CALCIUM 7.3 mg/dL (8.5-10.1); CREATININE 6.9 mg/dL (0.6-1.3); POTASSIUM 3.7 mmol/L (3.5-5.1)
[2017-10-21 19:21] LABS: ALBUMIN 2.8 g/dL (3.4-5.0); TOTAL BILIRUBIN 0.7 mg/dL (<0.1-1.0); TOTAL PROTEIN 5.6 g/dL (6.4-8.2); TROPONIN-I LEVEL 0.19 ng/mL (<0.06)
[2017-10-21 19:46] LABS: ABSOLUTE LYMPHOCYTES 1.5 thou/uL (0.8-5.3); ABSOLUTE MONOCYTES 0.9 thou/uL (0.0-1.2)
[2017-10-21 19:47] LABS: ANISOCYTOSIS 1+; POIKILOCYTOSIS Occasional
[2017-10-21 19:48] LABS: PLATELET ESTIMATE DECREASED
[2017-10-21 20:03] LABS: URINE BILIRUBIN NEGATIVE (Negative); URINE BLOOD NEGATIVE (Negative); URINE CLARITY CLEAR; URINE COLOR YELLOW; URINE GLUCOSE-RANDOM NEGATIVE (Negative); URINE KETONES NEGATIVE (Negative); URINE LEUKOCYTES-REFLEX NEGATIVE (Negative); URINE NITRITE-REFLEX NEGATIVE (Negative); URINE PROTEIN NEGATIVE (Negative); URINE UROBILINOGEN 0.2 E.U./dl (0.2-1.0)
[2017-10-21 21:30] VITALS: BP 102/79
[2017-10-21 22:02] VITALS: BP 145/80
[2017-10-22 04:00] VITALS: BP 113/72
--- NOTE | 2017-10-22 08:18 | NUR ---
RECEIVED REPORT AND ASSUMED CARE AT 2200. PT TRANSPORTED FROM ED TO ROOM 232. VSS. CARDIAC MONITORING IN PLACE. PT DENIES ANY COMPLAINTS OF PAIN. PT IS VERY CONFUSED, ORIENTATED TO SELF. POSITION CHANGED EVERY TWO HOURS. ADMISSION / ASSESSMENT COMPLETED CHARTED. PT SCREENED POSITIVE FOR SEPSIS, PHYSICIAN CONTACTED. REPEAT CXR ORDERED. HOURLY ROUNDING COMPLETED AND ALL NEEDS MET.PT ON 4L NC. NURSING WILL CONTINUE TO MONITOR
[2017-10-22 08:25] VITALS: BP 101/52
--- NOTE | 2017-10-22 10:56 | NUR ---
RECEIVED REPORT FROM DANISH AND ASSUMED CARE OF PT @ 8189.PT IS A/O X1,VSS,TRACING V PACED ON THE MONITOR.LUNG SOUNDS ARE CLEAR.IV PATENT WITH FLUIDS INFUSING PER ORDERS.PT IS CALM AND COOPERATIVE WITH NO C/O PAIN AT TIME OF ASSESSMENT.PT IS BEDREST WITH Q2 HOUR POSITION CHANGE.PT LEFT RESTING IN BED WITH CALL LIGHT AND FALL PRECAUTIONS IN PLACE. WILL CONTINUE TO MONITOR.
--- NOTE | 2017-10-22 12:02 | EKG ---
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 : 1940 Requested By: Teresita Caro Order Number: [id number] MD: Leo Elam Measurements Intervals Marion Rate: 103 P: 0 PA: 55 QRS: 69 QRSD: 181 T: 208 QT: 386 QTc: 506 Interpretive Statements atrial sensed ventricular paced artifact noted No further analysis attempted due to paced rhythm Compared to ECG 09/25/2017 10:43:10 no change Electronically Signed On 10-22-2017 12:02:40 CDT by Leo Elam [email or web address] <ELECTRONICALLY SIGNED> By: Leo Elam MD, [facility] 10/22/17 1202 [id number] Leo Elam MD, [facility] /EPI
[2017-10-22 12:16] VITALS: BP 103/59
--- NOTE | 2017-10-22 14:19 | NUR ---
MET WITH PT TO DISCUSS HOME SITUATION TO DISCUSS HOME SITUATION. PT STATED SHE LIVED AT HOME WITH HER SON/GRANDSON AND GRANDDTR. PER CHART, SHE IS FROM [facility]. CALLED TO CONFIRM THAT WITH ANTONIO/TRUNG. SHE WAS SCHEDULED TO GO HOME TOMORROW FROM THERE. CALL TO DTR/JAXSON CAMPOS. 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 SHE STATED THAT PT HADN'T BEEN EATING FOR THE LAST 3 DAYS. SHE VOICED FRUSTRATION WITH HER MOTHER'S SLOW PROGRESS IN SNF WITH AMBULATING. SHE DID STATE THAT IF PT NEEDS SNF AGAIN, THEY WOULD WANT HER TO GO BACK TO [facility]. PT USES WALKER AND WEARS O2 AT NIGHT. WILL FOLLOW
[2017-10-22 15:17] LABS: HEMATOCRIT 23.1 % (37.0-47.0); HEMOGLOBIN 7.5 gm/dL (12.0-15.0); MCH 30.4 pg (26.0-34.0); MCHC 32.2 g/dL (28.0-37.0); MCV 94.5 fL (80.0-100.0); MPV 12.7 fl. (7.2-11.1); NUCLEATED RBCS 0 /100WBC; PLATELET COUNT* 89 thou/uL (150-400); RBC 2.45 mil/uL (4.20-5.00); RDW-CV 18.1 % (10.5-14.5); WBC 9.6 thou/uL (4.0-11.0)
[2017-10-22 15:38] LABS: CALCIUM 6.9 mg/dL (8.5-10.1); CREATININE 6.1 mg/dL (0.6-1.3); POTASSIUM 3.1 mmol/L (3.5-5.1)
[2017-10-22 15:44] LABS: MAGNESIUM 0.9 mg/dL (1.8-2.4)
[2017-10-22 16:00] VITALS: BP 131/59
[2017-10-22 16:05] LABS: ABSOLUTE EOSINOPHILS 0.1 thou/uL (0.0-0.7); ABSOLUTE LYMPHOCYTES 1.2 thou/uL (0.8-5.3); ABSOLUTE MONOCYTES 0.5 thou/uL (0.0-1.2); ABSOLUTE NEUTROPHILS 7.8 thou/uL (1.6-8.1)
[2017-10-22 16:06] LABS: PLATELET ESTIMATE DECREASED
[2017-10-22 16:09] LABS: ANISOCYTOSIS 1+; HYPOCHROMASIA 1+
--- NOTE | 2017-10-22 16:37 | 2DMMODE ---
[place] [address] 2 D/M-MODE ECHOCARDIOGRAM Name: RENEE ELY Room: [address] IN [facility]#: [id number] Admission: 10/21/17 Attend Phys: Nawaf Meléndez Discharge: Date of : 40 Date of Service: 10/22/17 1637 Report #: [id number] THIS REPORT FOR: //name// APPROVED REPORT Study performed: 10/22/2017 14:20:00 EXAM: Comprehensive 2D, Doppler, and color-flow Echocardiogram Patient Location: In-Patient Room #: [facility] Status: routine BSA: 1.71 HR: 56 bpm BP: 103/59 mmHg Rhythm: NSR Other Information Study Quality: Good Indications Congestive Heart Failure Dyspnea ARF, dehydration 2D Dimensions LVEF(%): 74.17 (>50%) IVSd: 14.94 (7-11mm) LVOT Diam: 18.44 (18-24mm) LVDd: 34.64 mm PWd: 12.77 (7-11mm) Ascending Ao: 27.40 (22-36mm) LVDs: 20.05 (25-40mm) Aortic Root: 30.03 mm Valdes's LVEF: 74.17 % Volumes Left Atrial Volume (Systole) LA ESV Index: 31.90 mL/m2 Aortic Valve AoV Peak Madi.: 1.65 m/s AO Peak Gr.: 10.89 mmHg LVOT Max P.04 mmHg AO Mean Gr.: 5.74 mmHg LVOT Mean P.68 mmHg LVOT Max V: 1.00 m/s AO V2 VTI: 33.52 cm LVOT Mean V: 0.58 m/s JIMMIE (VTI): 1.99 cm2 LVOT V1 VTI: 25.02 [place] [address] 2 D/M-MODE ECHOCARDIOGRAM Name: RENEE ELY Room: [address] IN ..#: [id number] Admission: 10/21/17 Attend Phys: Nawaf Meléndez Discharge: Date of : 40 Date of Service: 10/22/17 1637 Report #: [id number] Mitral Valve E/A Ratio: 0.83 MV Decel. Time: 254.60 ms MV E Max Madi.: 0.82 m/s MV PHT: 73.84 ms MVA (PHT): 2.98 cm2 TDI E/Lateral E': 10.25 E/Medial E': 10.25 Medial E' Madi.: 0.08 m/s Lateral E' Madi.: 0.08 m/s Pulmonary Valve PV Peak Madi.: 1.22 m/s PV Peak Gr.: 5.92 mmHg Tricuspid Valve RAP Estimate: 5.00 mmHg TR Peak Gr.: 32.44 mmHg RVSP: 37.44 mmHg PA Pressure: 37.44 mmHg Left Ventricle The left ventricle is normal size. There is normal LV segmental wall motion. Mild concentric left ventricular hypertrophy. Left ventricular systolic function is normal. The left ventricular ejection fraction is within the normal range. LVEF is 60-65%. Grade I - abnormal relaxation pattern. Right Ventricle The right ventricle is normal size. The right ventricular systolic function is normal. Pacemaker lead is present in the right ventricle. Atria Left atrium is mildly dilated. Right atrium is mildly dilated. Aortic Valve The aortic valve is normal in structure. No aortic regurgitation is present. There is no aortic valvular stenosis. Mitral Valve The mitral valve is normal in structure. Trace mitral regurgitation. No evidence of mitral valve stenosis. Tricuspid Valve The tricuspid valve is normal in structure. Mild tricuspid regurgitation. estimated pa pressure 40 [place] [address] 2 D/M-MODE ECHOCARDIOGRAM Name: RENEE ELY Maria E Room: [address] IN [facility]#: [id number] Admission: 10/21/17 Attend Phys: Nawaf Meléndez Discharge: Date of : 40 Date of Service: 10/22/17 1637 Report #: [id number] Pulmonic Valve The pulmonary valve is normal in structure. Trace pulmonic regurgitation. Great Vessels The aortic root is normal in size. IVC is normal in size and collapses with >50% inspiration Pericardium There is no pericardial effusion. <Conclusion> Mild concentric left ventricular hypertrophy. LVEF is 60-65%. Left atrium is mildly dilated. Right atrium is mildly dilated. Mild tricuspid regurgitation. estimated pa pressure 40 mm Hg <ELECTRONICALLY SIGNED> By: Leo Elam MD, [facility] 10/22/17 1637 163 163 Leo Elam MD, FACC /INF
--- NOTE | 2017-10-22 16:46 | EKG ---
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: : 1940 Requested By: Nawaf Meléndez Order Number: [id number] Kenrick MD: Leo Elam Measurements Intervals Matthews Rate: 129 P: OK: QRS: 49 QRSD: 256 T: 237 QT: QTc: 0 Interpretive Statements sinus rhythm low voltage LBBB Artifact in lead(s) I,III,aVF,V1,V2,V3,V4,V5,V6 Compared to ECG 10/21/2017 19:04:35 no change Electronically Signed On 10-22-2017 16:46:06 CDT by Leo Elam [email or web address] <ELECTRONICALLY SIGNED> By: Leo Elam MD, [facility] 10/22/17 1646 1214 1214 Leo Elam MD, [facility] /EPI
--- NOTE | 2017-10-22 18:36 | NUR ---
VSS,CARDIAC MONITORING IN PLACE WITH NO CHANGES.PT ON ROOM AIR.PT IS VERY CONFUSED THIS EVENING, PULLING GOWN OFF AND HEART MONITOR LEADS.NO C/O PAIN.IVF INFUSING PER ORDERS.Q2 HOUR POSITION CHANGE COMPLETED.PICTURES TAKEN OF BRUISING.HOURLY ROUNDING COMPLETED FOR PT SAFETY.CALL LIGHT AND FALL PRECAUTIONS IN [place].WILL CONTINUE TO MONITOR FOR DURATION OF SHIFT.
[2017-10-22 20:00] VITALS: BP 123/81
[2017-10-23] VITALS (7 sets, daily range): BP systolic 99–141; BP diastolic 43–90
--- NOTE | 2017-10-23 04:08 | NUR ---
ASSUMED PT CARE AT 1930, PT IS AWAKE AND ALERT TO SELF ONLY. PT IS VERY CONFUSED. PT IS IMPULSIVE PULLING AT LINES AND CARDIAC MONITORS. PT PULLED DRESSING OF CENTRAL LINE OFF, CENTRAL LINE WAS REDRESSED THIS SHIFT. PT WAS PLACED IN MITTS AT THIS TIME. IVF IFNUSING PER MAY. PT HAS A GOVEA TO DD, DRAINING SMALL AMOUNTS OF URINE. BED IN LOW POSITION, CALL LIGHT IN REACH, BED ALARM ON, YELLOW ARM BAND AND SOCKS IN PLACE. HOURLY ROUNDING COMPLETED FOR PT SAFETY. PT IS TRACING VPACED ON THE MONITOR, ON RA SATTING MID TO HIGH 90'S.
[2017-10-23 05:03] LABS: ABSOLUTE LYMPHOCYTES 0.4 thou/uL (0.8-5.3); ABSOLUTE MONOCYTES 0.2 thou/uL (0.0-1.2); ABSOLUTE NEUTROPHILS 9.6 thou/uL (1.6-8.1); BASOPHILS 0.3 %; HEMATOCRIT 22.3 % (37.0-47.0); HEMOGLOBIN 7.3 gm/dL (12.0-15.0); LYMPHOCYTES 4.3 %; MCH 30.8 pg (26.0-34.0); MCHC 32.7 g/dL (28.0-37.0); MCV 94.2 fL (80.0-100.0); MONOCYTES 2.1 %; MPV 11.9 fl. (7.2-11.1); NUCLEATED RBCS 0 /100WBC; PLATELET COUNT* 86 thou/uL (150-400); POLYS 93.3 %; RBC 2.37 mil/uL (4.20-5.00); RDW-CV 17.6 % (10.5-14.5); WBC 10.3 thou/uL (4.0-11.0)
[2017-10-23 05:50] LABS: ALBUMIN 2.5 g/dL (3.4-5.0); CALCIUM 7.2 mg/dL (8.5-10.1); CREATININE 5.5 mg/dL (0.6-1.3); TOTAL BILIRUBIN 0.5 mg/dL (<0.1-1.0); TOTAL PROTEIN 4.4 g/dL (6.4-8.2)
--- NOTE | 2017-10-23 10:05 | NUR ---
RECEIVED REPORT FROM ELEAZAR AND ASSUMED CARE OF PT @ 6082.PT IS A/O TO SELF.PT IS VERY CONFUSED WITH IMPULSIVE BEHAVIORS.VSS, TRACING V PACED ON THE MONITOR.LUNG SOUNDS ARE CLEAR.LAST BM UNKNOWN-PT NOT ABLE TO SAY.IV RIGHT SUBCLAVIAN CENTRAL LINE PATENT WITH FLUIDS INFUSING PER ORDERS.NO C/O PAIN AT TIME OF ASSESSMENT.PT IS BEDREST WITH POSITION CHANGE Q2H.PT LEFT RESTING IN BED WITH CALL LIGHT AND FALL PRECAUTIONS IN PLACE.WILL CONTINUE TO MONITOR.
--- NOTE | 2017-10-23 12:34 | NUR ---
FAXED UPDATED CLINICAL TO [facility]. WILL FOLLOW
--- NOTE | 2017-10-23 18:19 | NUR ---
VSS,CARDIAC MONITORING IN PLACE WITH NO CHANGES.PT REMAINS ON 2L O2 NC WHILE SLEEPING.NO C/O PAIN.PT HAS SLEPT MOST OF THE SHIFT.PT WORKED WITH PHYSICAL THERAPY AND SAT UP IN CHAIR FOR SEVERAL HOURS.IVF INFUSING PER ORDERS.PT STILL PRETTY CONFUSED THIS SHIFT.HOURLY ROUNDING COMPLETED FOR PT SAFETY.CALL LIGHT AND FALL PRECAUTIONS IN PLACE.WILL CONTINUE TO MONITOR FOR DURATION OF SHIFT.
[2017-10-24 04:00] VITALS: BP 154/54
[2017-10-24 05:27] LABS: ALBUMIN 2.6 g/dL (3.4-5.0); CALCIUM 8.3 mg/dL (8.5-10.1); POTASSIUM 4.1 mmol/L (3.5-5.1); TOTAL BILIRUBIN 0.7 mg/dL (<0.1-1.0)
[2017-10-24 05:31] LABS: CREATININE 4.4 mg/dL (0.6-1.3)
--- NOTE | 2017-10-24 06:57 | NUR ---
PT IS ABLE TO COMMUNICATE HER NEEDS TO STAFF WITH SOME DIFFICULTY; SHE IS QUITE DISORIENTED, FORGETFUL AND CONFUSED MOST OF THE TIME UP TO THIS POINT. SHE HAS DENIED THE NEED FOR PAIN MEDICATION UP TO THIS TIME. JEFERSON IS PATENT.
--- NOTE | 2017-10-24 07:55 | NUR ---
RECEIVED REPORT FROM JOSE ALBERTO AND ASSUMED CARE OF PT @ 0560.PT IS A/O X1 WITH CONFUSION AND IMPULSIVNESS.VSS,TRACING V PACED ON THE MONITOR.LUNG SOUNDS ARE CLEAR.IV PATENT WITH FLUIDS INFUSING PER ORDERS.PT IS CALM AND COOPERATIVE WHEN AWAKE.NO C/O PAIN AT TIME OF ASSESSMENT.PT LEFT RESTING IN BED WITH CALL LIGHT AND FALL PRECAUTIONS IN PLACE.WILL CONTINUE TO MONITOR. GI CONSULTED DUE TO PT NOT EATING.GASTRIC EMPTYING TEST ORDERED BUT WAS TOO LATE IN THE DAY AND CAN'T BE COMPLETED UNTIL FRIDAY.
[2017-10-24 08:00] VITALS: BP 148/82
[2017-10-24 11:22] VITALS: BP 195/159
--- NOTE | 2017-10-24 13:30 | NUR ---
MET WITH PT'S BRANDONR/JAXSON TO DISCUSS CURRENT POC AND DC PLAN. SHE STILL WOULD LIKE PT TO RETURN TO [facility] [place] FOR MORE REHAB IF POSSIBLE. SHE UNDERSTOOD ABOUT GI CONSULT AND GET ORDERED. ALSO AWARE THAT PT IS STILL NOT EATING AND DRINKING WELL. DTR IS DIALYSIS NURSE, WELL AWARE OF PT'S ARF AND NOT A DIALYSIS CANDIDATE. SHE STATED THAT PT HAS HAD 'SEVERAL' ADMITS FOR DEHYDRATION AND ARF. SHE TALKED ABOUT HER MOTHER'S DEMENTIA AND DETERIORATION. DISCUSSED POSSIBLE PLAN AFTER GI CONSULT DEPENDING ON RECOMMENDATIONS INCLUDING SNF, LTC, OR HOSPICE IF APPROPRIATE AT SOME POINT. SHE STATED THAT SHE IS TALKING WITH OTHER FAMILY MEMBERS AND THEY ARE UNDER 'LOTS OF STRESS.' SHE HAS A SON WITH CURRENT MENTAL HEALTH NEEDS WELL, GAVE HER SOME RESOURCES FOR THAT. WILL FOLLOW
--- NOTE | 2017-10-24 14:55 | CON ---
[address] [address] CONSULTATION Name: RENEE ELY Room: [address] IN .R.#: [id number] Admission: 10/21/17 Attend Phys: Maria E Hebert Discharge: Date of : 40 Report #: [id number] THIS REPORT FOR: //name// CC: Delia Meléndez DATE OF SERVICE: 10/22/2017 Consult has been requested by Dr. Ballard. INDICATION FOR CONSULTATION: Shortness of breath. HISTORY OF PRESENT ILLNESS: This is a 77-year-old female. She is the resident of a long-term care facility. The patient has a baseline creatinine of 1.2, although a creatinine up to 1.6 was recorded during a recent hospitalization at this facility just a few weeks ago. The patient was recently admitted here for GI complaints and did undergo an EGD. She does carry a diagnosis of bronchial asthma. She is on oxygen while asleep, which appears to be due to obstructive sleep apnea. The patient is previously reported to be noncompliant with CPAP therapy. She is reported to be a lifetime nonsmoker. She does have dementia, which limits evaluation. At this time, the patient is brought here with a possible history of fall. The patient is reported to have a history of atrial fibrillation, is on Eliquis, has multiple bruises all over her body. She has been complaining of pain and weakness, has had poor appetite and has also been short of breath. Overnight, the patient was fluid resuscitated as she was noted to be in acute renal failure with a creatinine up to 6.9. The patient is reported to have had initial O2 saturation of only 89% on 3 liters oxygen via nasal cannula. The patient, however, is oxygenating adequately with O2 saturations around 94% or 95% on 2 liters nasal cannula now. She continues to have a blood pressure on the lower side at 103/59. She, however, is not on any pressors. The patient does have a history of dementia, which limits her ability to provide further history and she is not able to provide a complete review of systems. PAST MEDICAL HISTORY: Obstructive sleep apnea, intolerant of CPAP therapy, on oxygen 2 liters while asleep, long-term bronchial asthma; atrial fibrillation, on amiodarone as well as Eliquis long-term per the ER records, recent admission to this hospital with GI complaints. The patient noted to have gastritis and recommended Protonix b.i.d. by the GI service. I do not have a measure of her left ventricular ejection fraction available at this time. Total knee replacement, hysterectomy, defibrillator/pacemaker placement, hiatal hernia, hypertension, anemia, cardiac stents, chronic diarrhea, pre-diabetic. CURRENT MEDICATIONS: [place] [address] CONSULTATION Name: RENEE ELY Room: [address] IN [facility]#: [id number] Admission: 10/21/17 Attend Phys: Maria E Hebert Discharge: Date of : 40 Report #: [id number] HOME MEDICATIONS: [email or web address]. SOCIAL HISTORY: She is a resident of long-term care facility. Per the records, she is a lifetime nonsmoker. FAMILY HISTORY: The patient is unable to provide the family history. ALLERGIES: SHE HAS REPORTED ALLERGY TO [facility]. PHYSICAL EXAMINATION: GENERAL: She is fully awake. She is aware that she is in the hospital, knows that it is daytime; however, is unable to provide further answers to orientation questions. VITAL SIGNS: She has a pulse of 66 and a blood pressure of 103/59. She is saturating 94%. She is on 2 liters nasal cannula. She is afebrile with a temperature of 36.6. She had a low grade elevation of temperature to 37.2 earlier today. HEENT: Head is normocephalic and atraumatic. Pupils are equal and reactive. There is no throat erythema. Airway is Mallampati 3. NECK: Does not show raised JVP, asymmetry, mass or lymph nodes. CHEST: Symmetrical expansion on inspection and palpation. On auscultation, breath sounds are bilaterally equal, decreased. Expirations are prolonged. I do not hear any added sounds. HEART: Irregular. There is no murmur. ABDOMEN: Soft and nontender. LOWER EXTREMITIES: Show no edema and no calf tenderness. SKIN: Dry. It is intact; however, there are multiple bruises noted over her whole body, particularly lower extremities. NEUROLOGICAL: Mental status as mentioned above. She does move all extremities bilaterally equally and spontaneously with no focal deficit identified. IMAGING: I ordered a CT chest without contrast which shows minimal bilateral basilar opacities, which likely indicate small areas of atelectasis. Small infiltrates cannot be completely ruled out; however, at this time, appear to be unlikely. LABORATORY DATA: The patient's lab work, which was consistent with acute renal failure, is in [employer] and this is reviewed. ASSESSMENT AND PLAN: 1. Acute respiratory insufficiency. The primary etiology of the patient's decompensation appears to be that she is dehydrated and she is in acute renal failure secondary to dehydration. There is a smaller component of bronchospasm as well. 2. Acute renal failure with dehydration. Note that the patient's baseline [facility] [address] [place] [address] CONSULTATION Name: RENEE ELY Room: [address] IN M.R.#: [id number] Admission: 10/21/17 Attend Phys: Maria E Hebert Discharge: Date of : 40 Report #: [id number] creatinine is 1.2 with recent elevation to around 1.6 during the last hospitalization about a month ago. At this time, I recommend continuing with fluid resuscitation. Nephrology service is on the case, suggest following electrolytes and creatinine closely. Potentially, if the patient's creatinine is not improving today, then her fluids could be increased. 3. Asthma exacerbation. As noted above, there is a minor component of bronchospasm. I do not, however, feel that this is the primary etiology of the patient's presentation. I would, however, recommend giving her nebulized bronchodilators. I ordered 2 doses of Solu-Medrol as well. We will reassess tomorrow regarding whether more steroids are indicated. There are vague radiopaque densities at bilateral lung bases. These are likely minor areas of atelectasis. I cannot completely rule out pneumonia; however, this appears to be unlikely at this time. For now, I did not order antibiotics. I did, however, recommend cultures. We will reassess with a chest x-ray tomorrow. 4. Obstructive sleep apnea. Note that the patient is unable to tolerate positive airway pressure therapy. She is on long-term oxygen while asleep. 5. Atrial fibrillation, on Eliquis. Suggest carefully reevaluating risks and benefits of continuing anticoagulation upon her discharge. I also do not have any measure of her left ventricular ejection fraction and I do recommend that we proceed with an echocardiogram. 6. Gastritis. The gastrointestinal service recommended recently that she should be on Protonix b.i.d., I ordered the same for now. I ordered this IV; however, if the patient is able to take orally, then recommend switching to p.o. 7. High aspiration risk. Recommend strict aspiration precautions. 8. Dementia. Thanks for this consultation. <ELECTRONICALLY SIGNED> By: Anastacio Ochoa MD 10/24/17 [id number] [id number] Ocoha MD /nt
[2017-10-24 15:30] VITALS: BP 147/66
--- NOTE | 2017-10-24 18:35 | NUR ---
VSS,CARDIAC MONITORING IN PLACE WITH NO CHANGES.PT REMAINS ON 2L O2 NC WHILE SLEEPING.PT SLEPT MOST OF BEGINNING OF SHIFT.C/O PAIN IN ARMS AND LEGS-MEDICATIONS GIVEN.IVF INFUSING PER ORDERS.PT REFUSED TO EAT MEALS BUT DID EAT SEVERAL THINGS OF PUDDING.PT WORKED WITH PHYSICAL THERAPY AND OT.SAT UP IN CHAIR MOST OF AFTERNOON.HOURLY ROUNDING COMPLETED FOR PT SAFETY.CALL LIGHT AND FALL PRECAUTIONS IN PLACE.WILL CONTINUE TO MONITOR FOR DURATION OF SHIFT.
[2017-10-24 20:00] VITALS: BP 93/51
[2017-10-25] VITALS: BP 129/77
[2017-10-25 04:00] VITALS: BP 163/84
[2017-10-25 09:00] VITALS: BP 157/40
[2017-10-25 12:18] VITALS: BP 109/49
[2017-10-25 16:53] VITALS: BP 133/76
[2017-10-25 20:00] VITALS: BP 156/55
[2017-10-26] VITALS: BP 149/60
--- NOTE | 2017-10-26 02:34 | NUR ---
PT ALERT ORIENTED TO SELF. UP TO CHAIR AND BACK TO BED WITH 2 PERSON ASSIST. TELEMETRY SHOWS VPACED. O2 AT 2 LITERS NC.
[2017-10-26 04:00] VITALS: BP 130/71
--- NOTE | 2017-10-26 04:39 | NUR ---
PT CONFUSED ORIENTED TO SELF ONLY. INCONT OF BM XS 2.
[2017-10-26 08:00] VITALS: BP 1148/64
[2017-10-26 12:00] VITALS: BP 121/55
--- NOTE | 2017-10-26 17:07 | NUR ---
PATIENT RESTING IN BED. PATIENT DENIES AY PAIN. PATIENT IS ORIENTED TO SELF. PATIENT REPOSITIONED IN BED. PATIENT HAS POOR APPETITE, SUPPLEMENTS GIVEN. GOVEA IN PLACE DRAINING YELLOW URINE. PATIENT HAS BEEN INCONTINENT OF STOOLS. PATIENT DENIES ANY NEEDS AT THIS TIME. CALL LIGHT WITHIN REACH. BED ALARM ON. WILL CONTINUE TO MONITOR.
--- NOTE | 2017-10-26 18:20 | NUR ---
ORDER RECEIVED TO TRANSFER PATINET TO [facility] ROOM 104. REPORT CALLED TO [facility]. PAITNET BELONGINGS GATHERED AND TRANSPORTED BY TECH. TRANSFER TO 14:45.
[2017-10-26 21:00] VITALS: BP 157/79
[2017-10-27 04:00] VITALS: BP 141/66
[2017-10-27 07:09] LABS: CREATININE 2.3 mg/dL (0.6-1.3); MAGNESIUM 1.5 mg/dL (1.8-2.4); POTASSIUM 3.7 mmol/L (3.5-5.1)
--- NOTE | 2017-10-27 07:25 | NUR ---
Oriented x 1-2,forgetful but pleasant. She answers questions appropriately. She is incontinent of bowel, bolden to dependent drainage. She has bruises all over. Vitals are stable she is 96% on 3L n/c. She has slept well.
[2017-10-27 11:23] VITALS: BP 164/61
[2017-10-27 16:00] VITALS: BP 146/72
--- NOTE | 2017-10-27 17:30 | NUR ---
PATIENT HAS BEEN ALERT AND ORIENTED TIMES 2-3 TODAY, SLEEPING MOST OF THE DAY. VITAL SIGHS STABLE ON 2 LITERS OF OXYGEN. NO COMPLAINTS OF PAIN TODAY. REFUSED TO DO GASTRIC EMPTYING TEST TODAY, PER TECHS, SWALLOWED PILLS FINE AND ATE SOME FOOD WITH NO PROBLEMS. PATIENT HAS BED ALARM AND CHAIR ALARM IN PLACE. CALL LIGHT IS IN REACH, WILL CONTINUE TO MONITOR.
[2017-10-27 21:00] VITALS: BP 151/49
--- NOTE | 2017-10-28 04:19 | NUR ---
PATIENT SLEPT WELL DURING THIS SHIFT. PT USES CALL LIGHT APPROPRIATELY FOR BEDPAN. PT UNABLE TO HAVE BOWEL MOVEMENT ON THIS SHIFT. PT WITH GOVEA TO DEPENDENT DRAIN WITH YELLOW URINE. PT ON O2 @ 2LITERS PER NASAL CANNULA. PT WITH SKIN TEAR ON LT UPPER ARM; DSG C/D/I. PT IS ALERT/ORIENTED X2-3; FORGETFUL AND CONFUSED. PT ASSISTED WITH REPOSITIONING Q2H PER PROTOCAL. FREQUENTLY USED ITEMS AND CALL LIGHT WITHIN REACH. SIDERAILS UPX4 AND BED ALARM ON. WILL CONTINUE TO MONITOR.
--- NOTE | 2017-10-28 09:40 | NUR ---
NOTED DISCHARGE SUMMARY IN COMPUTER. NOTIFIED ANTONIO/CECILE AND FAXED HER UPDATED PT/OT/ST ASSESSMENTS AND DISCHARGE SUMMARY. SHE WILL START INS.AUTHORIZATION.
[2017-10-28 10:52] VITALS: BP 140/57
--- NOTE | 2017-10-28 11:05 | CON ---
[address] [address] CONSULTATION Name: RENEE ELY Room: [address] IN .R.#: [id number] Admission: 10/21/17 Attend Phys: Maria E Hebert Discharge: Date of : 40 Report #: [id number] THIS REPORT FOR: //name// CC: Delia Meléndez DATE OF SERVICE: 10/22/2017 REQUESTING PHYSICIAN: Nawaf Meléndez DO REASON FOR CONSULTATION: Acute kidney injury. HISTORY OF PRESENT ILLNESS: The patient is a 77-year-old female who has been seen by us many years ago. She was seen by ____ about 20 years ago and then she was lost a followup and then she was seen by ____, but 15 years ago while she was in the hospital then was also lost a follow up. She presents to the hospital with complaints of shortness of breath. She does have a history of dementia, history of COPD with oxygen dependency, but she is not aware of that as she is on oxygen. Also has history of coronary artery disease and chronic kidney disease stage 3 and chronic diarrhea. X-rays that were done here did not reveal any evidence of fluid overload. Head CT showed some evidence of atrophy of the brain, but no acute problems. REVIEW OF SYSTEMS: Unreliable. SOCIAL HISTORY: detention resident. No tobacco or alcohol abuse. MEDICATIONS: Reviewed from my standpoint. She was on torsemide and losartan. PHYSICAL EXAMINATION: GENERAL: She is awake and alert. VITAL SIGNS: Blood pressure is 101/52 and heart rate 79, afebrile. HEENT: Pupils round. NECK: Fatty. LUNGS: Decreased air movement. No crackles. CARDIOVASCULAR: Distant heart tones. Systolic murmur 2/6 at the apex. ABDOMEN: Soft. EXTREMITIES: With some ecchymosis, but no pitting edema. LABORATORY DATA: Hemoglobin 9.0, white count 12.4. Serum sodium 134, potassium 3.7, chloride 98, BUN 50, creatinine 69, calcium 7.3, creatinine kinase 766, and albumin 2.8. Her creatinine was 1.6 in September of this year. ASSESSMENT: 1. Acute kidney injury of unclear etiology, [place] [address] CONSULTATION Name: RENEE ELY Room: [address] IN [facility]#: [id number] Admission: 10/21/17 Attend Phys: Maria E Hebert Discharge: Date of : 40 Report #: [id number] diarrhea and use of losartan and diuretics. 2. Chronic kidney disease stage 3, GFR around 31. Baseline creatinine 1.6 to baseline. 3. Dementia. 4. Chronic obstructive pulmonary disease, oxygen dependence. 5. Coronary artery disease. 6. History of hypertension. 7. History of cerebrovascular accident. PLAN: I think the patient is somewhat volume depleted. I would continue with normal saline at 75 mL an hour and I would avoid using of diuretics for now. No losartan. No nonsteroidals. I would like to get . ____ opinion on her shortness of breath as I think is primarily due to her lungs problem. Thank you very much for asking my opinion on acute kidney injury. <ELECTRONICALLY SIGNED> By: Dominik Ballard MD 10/28/17 1105 [id number] Ballard MD /nt
[2017-10-28 13:26] VITALS: BP 140/57
--- NOTE | 2017-10-28 14:09 | NUR ---
RECEIVED NOTIFICATION FROM ANTONIO/CECILE THAT SHE HAS RECEIVED INSURANCE AUTH FOR PT.TO COME THERE FOR A SNF STAY. THEY WILL PICK PT.UP AT 1530 IN [address] [facility]. PT.NEEDS O2 AT 2L/NC. FAXED ANTONIO CURRENT MEDICATION ORDERS. SHE HAS DISCHARGE SUMMARY THAT I FAXED HER THIS AM. NOTIFIED PT.AND CALLED DAUGHTER,JAXSON TO INFORM OF DISCHARGE AND TIME. CHART COPIED TO GO WITH PT. RICHARD VELEZ WILL CALL REPORT.
--- NOTE | 2017-10-28 16:59 | NUR ---
PATIENT HAS BEEN ALERT AND ORIENTED TIMES 2-3. NO PAIN COMPLAINTS TODAY. VITAL SIGNS HAVE BEEN STABLE ON ROOM AIR AND 2 LITERS OF OXYGEN. PATIENT HAD GOVEA AND CENTRAL LINE REMOVED ORDERED. PATIENT IS BEING DISCHARGED TO THE [facility]. REPORT AND CALLED AND GIVEN TO MALLORY. QUESTIONS ANSWERED FOR PATIENT AND MALLORY. LEFT VIA WHEELCHAIR WITH TRANSPORTER.
== END 2017-10-28 16:55 | DRG 177 ==
LOC: M.ERS 18:33 → M.TBA-ER 20:19 → M.ORTHSURG 20:19 → M.2W 20:19 → M.ORTHSURG 10-26 14:46
PROVIDERS: Internal Medicine; Internal Medicine Critical Care Medicine; Internal Medicine Nephrology; Nurse Practitioner Family; ADMIT Internal Medicine
DX: J69.0 Pneumonitis due to inhalation of food and vomit (principal); E43 Unspecified severe protein-calorie malnutrition; N17.0 Acute kidney failure with tubular necrosis; G93.40 Encephalopathy, unspecified; J45.901 Unspecified asthma with (acute) exacerbation; N18.5 Chronic kidney disease, stage 5; I13.2 Hypertensive heart and chronic kidney disease with heart failure and with stage 5 chronic kidney disease, or end stage renal disease; I50.9 Heart failure, unspecified; E86.0 Dehydration; F03.90 Unspecified dementia, unspecified severity, without behavioral disturbance, psychotic disturbance, mood disturbance, and anxiety; G47.33 Obstructive sleep apnea (adult) (pediatric); J44.9 Chronic obstructive pulmonary disease, unspecified; I48.91 Unspecified atrial fibrillation; K29.70 Gastritis, unspecified, without bleeding; D64.9 Anemia, unspecified; D69.6 Thrombocytopenia, unspecified; E83.51 Hypocalcemia; R62.7 Adult failure to thrive; K22.2 Esophageal obstruction; I25.10 Atherosclerotic heart disease of native coronary artery without angina pectoris; Z96.653 Presence of artificial knee joint, bilateral; Z86.73 Personal history of transient ischemic attack (TIA), and cerebral infarction without residual deficits; Z90.710 Acquired absence of both cervix and uterus; Z99.81 Dependence on supplemental oxygen; Z95.810 Presence of automatic (implantable) cardiac defibrillator; Z95.5 Presence of coronary angioplasty implant and graft; Z79.01 Long term (current) use of anticoagulants; Z79.51 Long term (current) use of inhaled steroids; Z79.899 Other long term (current) drug therapy; Z88.0 Allergy status to penicillin